=== PATIENT | female | born 2000 | race Caucasian/White ===

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

== ENCOUNTER 2021-12-26 13:28 | Inpatient (IN) ==
[2021-12-26] MEDS ORDERED: ZOFRAN INJ 4 MG VIAL IVP PRN (13:59)
--- NOTE | 2021-12-26 15:38 | DR.H&P ---
H&P History & Physical for Day of: H&P Date: 12/26/21 Chief Complaint Chief Complaint: Right lower quadrant abdominal pain with nausea and vomiting Allergies Allergies Allergy/AdvReac Type Severity Reaction Status Date / Time amitriptyline [From Elavil] AdvReac Verified 12/09/20 16:02 barium sulfate AdvReac Verified 12/09/20 16:02 pantoprazole [From Protonix] AdvReac Verified 12/09/20 16:02 atomic fireball AdvReac Uncoded 12/09/20 16:02 History of Present Illness History of Present Illness: This is a 21-year-old white female who presented to my office today complaining of a 2-day history of right lower quadrant pain with associated nausea and vomiting. She also has some diarrhea yesterday and the day before but none since yesterday. This is different for her because she normally has chronic constipation. She has been taking Zofran along with Phenergan and Compazine without any resolution in her nausea. Her nausea is made worse when thinking about eating something. Her mother reports that she has been drinking some fluid and but is not eating. Here in office exam revealed she had a negative rebound tenderness but positive obturator sign and positive Rovsing sign. I am mildly concerned the patient could have a possible underlying appendicitis but needs further work-up. Given that she is not able to eat and is having trouble keeping things down I think it is pertinent to go ahead and direct admit her and do a CT scanning of her abdomen and pelvis along with some blood work. I have already spoke with general surgeon, Dr. Gutiérrez who will be seeing her in consultation to see if anything is going on with her appendix. We will keep her n.p.o. in the meantime until after an initial work- up can be done. Past Medical History Past Medical History: Migraines and GERD Past Surgical History Surgical History: Cholecystectomy and Ortho Surgery Family History Family Medical History: Diabetes Mellitus and Hypertension Medications Home Medications: amitriptyline [From Elavil] Adverse Reaction (Verified 12/09/20 16:02) barium sulfate Adverse Reaction (Verified 12/09/20 16:02) pantoprazole [From Protonix] Adverse Reaction (Verified 12/09/20 16:02) atomic fireball Adverse Reaction (Uncoded 12/09/20 16:02) Review of Systems Constitutional: Weakness Eyes: No Symptoms Reported ENT: No Symptoms Reported Respiratory: No Symptoms Reported Cardiovascular: No Symptoms Reported Gastrointestinal: Nausea, Vomiting, Abdominal Pain, Diarrhea and Constipation Genitourinary: No Symptoms Reported Musculoskeletal: No Symptoms Reported Skin: No Symptoms Reported Neurological: No Symptoms Reported Physical Exam Vital Signs: Blood Pressure [Left Arm] 142/72 Blood Pressure [Right Arm] 104/56 Blood Pressure [Standing] 133/73 Blood Pressure [Sitting] 116/63 Blood Pressure [Lying] 120/66 Blood Pressure 116/59 Oriented: Normal, Time, Person and Place Eyes: Normal Ear: Normal Nose: Normal Throat: Normal Respiratory: Clear Throughout Cardiovascular: Normal Auscultation: Bowel Sounds: Absent Palpation: Normal Tenderness: RLQ, Moderate and Guarding Skin: Normal Musculoskeletal: Normal Psychiatric: Normal Mood Description: Calm Affect: Anxious Speech Pattern: Clear and Appropriate Assessment/Plan (1) Right lower quadrant pain: Status: Acute Plan: Checking CT abdomen and pelvis. Pain control with morphine and general surgery consult. (2) Anxiety: Status: Acute (3) POTS (postural orthostatic tachycardia syndrome): Status: Acute (4) Nausea and vomiting: Status: Acute Plan: IV Zofran
[2021-12-26] MEDS: MORPHINE SULFATE INJ 2 MG INJ IVP PRN ×2 (15:50→17:06)
[2021-12-26 15:53] LABS: BASOPHILS % (AUTO) 0.3 % (0.2-1.0); EOSINOPHILS # (AUTO) 0.1 x10^3/uL (0.0-0.2); EOSINOPHILS % (AUTO) 2.6 % (0.9-2.9); HEMATOCRIT 35.3 % (36.0-47.0); HEMOGLOBIN 12.2 g/dL (12.0-16.0); LYMPHOCYTES % (AUTO) 43.2 % (21.0-51.0); MEAN CORPUSCULAR HEMOGLOBIN 27.8 pg (27.0-34.0); MEAN CORPUSCULAR HGB CONC 34.5 g/dL (33.0-35.0); MEAN CORPUSCULAR VOLUME 80.7 fL (80.0-100.0); MEAN PLATELET VOLUME 8.3 fL (7.4-11.0); MONOCYTES # (AUTO) 0.4 x10^3/uL (0.3-0.8); MONOCYTES % (AUTO) 8.2 % (0.0-13.0); NEUTROPHILS # (AUTO) 2.1 x10^3/uL (2.2-4.8); NEUTROPHILS % (AUTO) 45.7 % (42.0-75.0); RED BLOOD COUNT 4.37 X10^6/uL (3.5-5.4); WHITE BLOOD COUNT 4.7 X10^3/uL (3.6-10.0)
[2021-12-26 16:02] LABS: SERUM PREGNANCY TEST, QUAL NEGATIVE <10 mIU/mL
[2021-12-26 16:04] LABS: ALANINE AMINOTRANSFERASE 14 Units/L (12-78); ALBUMIN 4.2 g/dL (3.4-5.0); ALKALINE PHOSPHATASE 64 Units/L (46-116); ASPARTATE AMINO TRANSFERASE 13 Units/L (15-37); BLOOD UREA NITROGEN 9 mg/dL (7-18); CALCIUM 8.3 mg/dL (8.5-10.1); CARBON DIOXIDE 28.5 mmol/L (21-32); CHLORIDE 104 mmol/L (98-107); CREATININE 0.72 mg/dL (0.55-1.02); SODIUM 140 mmol/L (136-145); eGFR NON BLACK RACES > 60 (>60)
--- NOTE | 2021-12-26 16:49 | CT ---
HISTORYRUQ PAINSTUDYABDOMEN/PELVIS W/O CONCOMPARISONFebruary 2021TECHNIQUEMultiple axial images of the abdomen and pelvis were obtained from the lung bases to the pubic symphysis without the administration of IV contrast. Dose reduction techniques including Automated Exposure Control (AEC) and adjustment of mA and kV were utilized.FINDINGSThe visualized portions of the lung bases are unremarkable . The liver, spleen, pancreas, kidneys, and adrenal glands are unremarkable in their noncontrast CT appearance. The gallbladder is surgically absent. No significant mesenteric lymphadenopathy or stranding can be observed. No free fluid or free air is seen within the abdomen. No bowel wall thickening or bowel dilatation is present. The colon is unremarkable. Specifically, there is no diverticulosis noted within the sigmoid colon. The appendix appears to be normal in size. There is some tiny adnexal cyst felt to be physiologic for the patient's age. The urinary bladder is grossly unremarkable. The bony structures are grossly intact.IMPRESSIONUnremarkable CT of the abdomen and pelvis.Electronically signed by: LELIA HENRIQUEZ (Dec 26, 2021 16:47:29)
[2021-12-26] MEDS: NS 1,000 ML IV 1,000 ML IV SCH (17:15)
[2021-12-26 17:34] VITALS: BMI 34.7
[2021-12-26] MEDS: DILAUDID INJ IVP PRN ×2 (18:22→21:25)
[2021-12-26] MEDS: FLAGYL IV PREMIX 500 MG BAG 500 MG/100 ML BAG IV SCH ×2 (18:22→21:14)
[2021-12-26] MEDS: PHENERGAN INJ 25 MG IM PRN (18:28)
[2021-12-26 18:59] LABS: BILIRUBIN,URINE NEGATIVE (NEGATIVE); BLOOD/HEMOGLOBIN,URINE 1+ (NEGATIVE); GLUCOSE, URINE NEGATIVE (NEGATIVE); KETONES,URINE 1+ (NEGATIVE); LEUKOCYTE ESTERASE ,URINE NEGATIVE (NEGATIVE); NITRITES,URINE NEGATIVE (NEGATIVE); PROTEIN,URINE 1+ (NEGATIVE); UROBILINOGEN,URINE NORMAL (NORMAL)
[2021-12-26 19:10] LABS: APPEARANCE,URINE SLIGHTLY HAZY (CLEAR); COLOR,URINE DARK YELLOW (YELLOW)
[2021-12-26 19:11] LABS: BACTERIA,URINE TRACE /HPF (NEGATIVE); RBC,URINE 0-2 /HPF (0-3); SQUAMOUS EPITHELIAL CELL,UR MANY /HPF (NEGATIVE)
[2021-12-26] MEDS ORDERED: CIPRO IV 400 MG PREMIX* 400 MG/200 ML IV.SOLN. IV ONE (19:45)
[2021-12-26] MEDS: CIPRO IV 400 MG PREMIX* 400 MG/200 ML IV.SOLN. IV SCH (20:10)
[2021-12-26] MEDS ORDERED: KLONOPIN TAB 1 MG PO PRN (21:16)
[2021-12-26] MEDS: ZOFRAN INJ 4 MG VIAL IVP PRN (21:43)
[2021-12-26] MEDS ORDERED: ZOLOFT ONE (21:52)
[2021-12-26] MEDS: PriLOSEC PO SCH (21:57)
[2021-12-26] MEDS: ZOLOFT PO SCH (21:58)
[2021-12-26] MEDS: NEURONTIN TAB 600 MG PO SCH (21:58)
[2021-12-26] MEDS: PLAQUENIL PO SCH (21:58)
[2021-12-26] MEDS: ZANAFLEX PO SCH (22:00)
[2021-12-26] MEDS ORDERED: INDERAL TAB 10 MG PO SCH (22:00)
[2021-12-27] MEDS: PHENERGAN INJ 25 MG IM PRN ×4 (00:57→20:25)
[2021-12-27] MEDS: DILAUDID INJ IVP PRN ×7 (00:57→22:05)
[2021-12-27] MEDS: NS 1,000 ML IV 1,000 ML IV SCH ×3 (01:19→17:43)
[2021-12-27] MEDS: ZOFRAN INJ 4 MG VIAL IVP PRN ×3 (03:48→17:27)
[2021-12-27] MEDS: FLAGYL IV PREMIX 500 MG BAG 500 MG/100 ML BAG IV SCH ×3 (05:28→23:17)
[2021-12-27] MEDS: REGLAN TAB 10 MG PO SCH ×4 (05:44→21:56)
[2021-12-27] MEDS: NEURONTIN TAB 600 MG PO SCH ×3 (05:44→21:55)
--- NOTE | 2021-12-27 06:12 | RAD ---
HISTORYRight lower quadrant painSTUDYKUBCOMPARISONNoneFIND INGSAbdominal gas pattern is nonspecific and nonobstructive. No abnormal masses or abnormal calcifications are identified. No pneumoperitoneum is present. Regional skeleton is intact.IMPRESSIONUnremarkable flat and upright abdomenElectronically signed by: AMINA LOCKHART (Dec 27, 2021 06:11:13)
[2021-12-27] MEDS: CIPRO IV 400 MG PREMIX* 400 MG/200 ML IV.SOLN. IV SCH ×2 (08:35→21:56)
[2021-12-27] MEDS: PLAQUENIL PO SCH ×2 (08:35→21:56)
[2021-12-27] MEDS: TAB-A-VITE PO SCH (08:35)
[2021-12-27] MEDS: PriLOSEC PO SCH ×2 (08:35→21:55)
[2021-12-27] MEDS ORDERED: NORCO 7.5/325 MG TAB ONE (13:13)
[2021-12-27] MEDS: NORCO 7.5/325 MG TAB PO PRN ×2 (13:15→20:24)
[2021-12-27] MEDS ORDERED: TORADOL 30 MG VIAL ONE (15:04)
--- NOTE | 2021-12-27 15:14 | PCM.PROG ---
Progress Note Progress Note for Day of Date of Exam: 12/27/21 Subjective Subjective: This morning the patient continues to have pain in the right lower quadrant. CT scan did not reveal any fat stranding in the abdomen indicating any inflammation anywhere. Small right ovarian cyst was seen however general surgery thought that this should not cause her any pain. She does have a history of Crohn's disease in the past. She is not being treated for it at this time. I will consult gastroenterology, Dr. Fajardo for further evaluation and treatment of this problem. In the meantime she is receiving p.o. hydrocodone and IV Dilaudid for breakthrough pain. Her labs are unremarkable and she has had no further episodes of diarrhea. Her mother reports that she has vomited a few more times last night after coming in the hospital yesterday. Past Medical Family Social History Allergies: Allergies amitriptyline [From Elavil] Adverse Reaction (Verified 12/09/20 16:02) barium sulfate Adverse Reaction (Verified 12/09/20 16:02) pantoprazole [From Protonix] Adverse Reaction (Verified 12/09/20 16:02) atomic fireball Adverse Reaction (Uncoded 12/09/20 16:02) Review of Systems ROS: No change since H&P Vital Signs and I&O's Vital Signs: Temperature 97.7 F Pulse Rate [Bilateral Radial] 75 Pulse Rate 67 Respiratory Rate 18 Blood Pressure [Left Arm] 128/83 Blood Pressure [Right Arm] 104/56 Blood Pressure [Standing] 133/73 Blood Pressure [Sitting] 116/63 Blood Pressure [Lying] 120/66 Blood Pressure 102/59 O2 Sat by Pulse Oximetry 97 Intake and Output: Intake & Output 12/25/21 12/26/21 12/27/21 12/28/21 11:59 11:59 11:59 11:59 Intake Total 1625 / 1625 Balance 1625 / 1625 Physical Exam Oriented: Normal, Time, Person and Place Eyes: Normal Ear: Normal Nose: Normal Throat: Normal Respiratory: Normal Cardiovascular: Normal Auscultation: Bowel Sounds: Absent Tenderness: RLQ, Moderate and Guarding Skin: Normal Musculoskeletal: Normal Psychiatric: Normal Mood Description: Calm Affect: Anxious Speech Pattern: Clear and Appropriate Laboratory and Diagnostics Result Diagrams: 12/26/21 15:40 12/26/21 15:40 Labs: Laboratory WBC 4.7 X10^3/uL (3.6-10.0) 12/26/21 15:40 RBC 4.37 X10^6/uL (3.5-5.4) 12/26/21 15:40 Hgb 12.2 g/dL (12.0-16.0) 12/26/21 15:40 Hct 35.3 % (36.0-47.0) L 12/26/21 15:40 MCV 80.7 fL (80.0-100.0) 12/26/21 15:40 MCH 27.8 pg (27.0-34.0) 12/26/21 15:40 MCHC 34.5 g/dL (33.0-35.0) 12/26/21 15:40 RDW 13.0 % (11.6-16.5) 12/26/21 15:40 Plt Count 243 X10^3/uL (150.0-450.0) 12/26/21 15:40 MPV 8.3 fL (7.4-11.0) 12/26/21 15:40 Neut % (Auto) 45.7 % (42.0-75.0) 12/26/21 15:40 Lymph % (Auto) 43.2 % (21.0-51.0) 12/26/21 15:40 [place] % (Auto) 8.2 % (0.0-13.0) 12/26/21 15:40 Eos % (Auto) 2.6 % (0.9-2.9) 12/26/21 15:40 Baso % (Auto) 0.3 % (0.2-1.0) 12/26/21 15:40 Neut # (Auto) 2.1 x10^3/uL (2.2-4.8) L 12/26/21 15:40 Lymph # (Auto) 2.0 X10^3/uL (1.3-2.9) 12/26/21 15:40 [place] # (Auto) 0.4 x10^3/uL (0.3-0.8) 12/26/21 15:40 Eos # (Auto) 0.1 x10^3/uL (0.0-0.2) 12/26/21 15:40 Baso # (Auto) 0.0 X10^3/uL (0.0-0.1) 12/26/21 15:40 Absolute Nucleated RBC 0.1 /100WBC 12/26/21 15:40 Sodium 140 mmol/L (136-145) 12/26/21 15:40 Corrected Sodium TNP 12/26/21 15:40 Potassium 3.8 mmol/L (3.5-5.1) 12/26/21 15:40 Chloride 104 mmol/L (98-107) 12/26/21 15:40 Carbon Dioxide 28.5 mmol/L (21-32) 12/26/21 15:40 BUN 9 mg/dL (7-18) 12/26/21 15:40 Creatinine 0.72 mg/dL (0.55-1.02) 12/26/21 15:40 Est GFR (MDRD) Af Amer > 60 (>60) 12/26/21 15:40 Est GFR (MDRD) Non-Af > 60 (>60) 12/26/21 15:40 Glucose 94 mg/dL (65-99) 12/26/21 15:40 Calcium 8.3 mg/dL (8.5-10.1) L 12/26/21 15:40 Corrected Calcium TNP 12/26/21 15:40 Total Bilirubin 0.60 mg/dL (0.2-1.0) 12/26/21 15:40 AST 13 Units/L (15-37) L 12/26/21 15:40 ALT 14 Units/L (12-78) 12/26/21 15:40 Alkaline Phosphatase 64 Units/L (46-116) 12/26/21 15:40 Total Protein 7.0 g/dL (6.4-8.2) 12/26/21 15:40 Albumin 4.2 g/dL (3.4-5.0) 12/26/21 15:40 Globulin 2.8 g/dL (2.5-4.5) 12/26/21 15:40 Albumin/Globulin Ratio 1.5 Ratio (1.1-2.1) 12/26/21 15:40 HCG, Qual Negative <10 mIU/mL 12/26/21 15:40 Specimen Type Random urine 12/26/21 18:20 Urine Color Dark yellow (YELLOW) 12/26/21 18:20 Urine Appearance Slightly hazy (CLEAR) 12/26/21 18:20 Urine pH 6.0 (5.0 - 8.0) 12/26/21 18:20 Ur Specific [place] 1.030 (1.000-1.030) 12/26/21 18:20 Urine Protein 1+ (NEGATIVE) 12/26/21 18:20 Urine Glucose (UA) Negative (NEGATIVE) 12/26/21 18:20 Urine Ketones 1+ (NEGATIVE) 12/26/21 18:20 Urine Blood 1+ (NEGATIVE) 12/26/21 18:20 Urine Nitrite Negative (NEGATIVE) 12/26/21 18:20 Urine Bilirubin Negative (NEGATIVE) 12/26/21 18:20 Urine Urobilinogen Normal (NORMAL) 12/26/21 18:20 Ur Leukocyte Esterase Negative (NEGATIVE) 12/26/21 18:20 Urine RBC 0-2 /HPF (0-3) 12/26/21 18:20 Urine WBC None seen /HPF (0-5) 12/26/21 18:20 Ur Squamous Epith Cells Many /HPF (NEGATIVE) 12/26/21 18:20 Urine Bacteria Trace /HPF (NEGATIVE) 12/26/21 18:20 Urine Mucus Few /HPF (NEGATIVE) 12/26/21 18:20 Ur Culture Indicated? No/not indicated 12/26/21 18:20 SARS-CoV-2 (PCR) Negative (NEGATIVE) 12/26/21 15:50 Radiology Reviewed: Yes Plan (1) Right lower quadrant pain: Status: Acute Narrative Support Text: CT did not show any underlying appendicitis and no mesenteric adenitis. Currently unaware what might be causing her her pain at this time Plan: I will consult gastroenterology, Dr. Fajardo for any further recommendations and treatment options. Follow-up pelvic ultrasound when results are available. (2) Anxiety: Status: Acute (3) POTS (postural orthostatic tachycardia syndrome): Status: Acute (4) Nausea and vomiting: Status: Acute Plan: IV Zofran (5) History of Crohn's disease: Status: Acute Plan: I will consult gastroenterology, Dr. Fajardo for recommendations to treatment of her history of Crohn's disease.
[2021-12-27] MEDS: TORADOL 30 MG VIAL IVP PRN (15:30)
--- NOTE | 2021-12-27 15:40 | DR.PROGNOT ---
Hospital Progress Notes - Progress Note for Day of: Progress Note Date: 12/27/21 - Chief Complaint Chief Complaint: still having RLQ pain with nausea .. moderate hypotention '. KUB was read as normal .. CBC and CMP were normal . - Past Medical Family Social History Past Med/Fam/Surg Hx: No changes since H&P Allergies: Allergies amitriptyline [From Elavil] Adverse Reaction (Verified 12/09/20 16:02) barium sulfate Adverse Reaction (Verified 12/09/20 16:02) pantoprazole [From Protonix] Adverse Reaction (Verified 12/09/20 16:02) atomic fireball Adverse Reaction (Uncoded 12/09/20 16:02) - Vital Signs Vital Signs: Temperature 97.7 F Pulse Rate [Bilateral Radial] 75 Pulse Rate 67 Respiratory Rate 18 Blood Pressure [Left Arm] 128/83 Blood Pressure [Right Arm] 104/56 Blood Pressure [Standing] 133/73 Blood Pressure [Sitting] 116/63 Blood Pressure [Lying] 120/66 Blood Pressure 102/59 O2 Sat by Pulse Oximetry 97 - Physical Exam Oriented: Normal, Time, Person, Place Eyes: Normal, Other (legally blind ) Ear: Normal Nose: Normal Throat: Normal Cardiovascular: Normal GI:Auscultation: Decreased (soft abdomen with moderate RLQ tenderness . no rebound ..BS hypoactive ..) GI:Palpation: Normal GI: Tenderness: RLQ, Guarding, Moderate Skin: Normal Musculoskeletal: Normal Psychiatric: Normal Mood Description: Calm Affect: Anxious Speech Pattern: Clear, Appropriate - Laboratory and Diagnostics Result Diagrams: 12/26/21 15:40 12/26/21 15:40 Labs: Laboratory WBC 4.7 X10^3/uL (3.6-10.0) 12/26/21 15:40 RBC 4.37 X10^6/uL (3.5-5.4) 12/26/21 15:40 Hgb 12.2 g/dL (12.0-16.0) 12/26/21 15:40 Hct 35.3 % (36.0-47.0) L 12/26/21 15:40 MCV 80.7 fL (80.0-100.0) 12/26/21 15:40 MCH 27.8 pg (27.0-34.0) 12/26/21 15:40 MCHC 34.5 g/dL (33.0-35.0) 12/26/21 15:40 RDW 13.0 % (11.6-16.5) 12/26/21 15:40 Plt Count 243 X10^3/uL (150.0-450.0) 12/26/21 15:40 MPV 8.3 fL (7.4-11.0) 12/26/21 15:40 Neut % (Auto) 45.7 % (42.0-75.0) 12/26/21 15:40 Lymph % (Auto) 43.2 % (21.0-51.0) 12/26/21 15:40 [place] % (Auto) 8.2 % (0.0-13.0) 12/26/21 15:40 Eos % (Auto) 2.6 % (0.9-2.9) 12/26/21 15:40 Baso % (Auto) 0.3 % (0.2-1.0) 12/26/21 15:40 Neut # (Auto) 2.1 x10^3/uL (2.2-4.8) L 12/26/21 15:40 Lymph # (Auto) 2.0 X10^3/uL (1.3-2.9) 12/26/21 15:40 [place] # (Auto) 0.4 x10^3/uL (0.3-0.8) 12/26/21 15:40 Eos # (Auto) 0.1 x10^3/uL (0.0-0.2) 12/26/21 15:40 Baso # (Auto) 0.0 X10^3/uL (0.0-0.1) 12/26/21 15:40 Absolute Nucleated RBC 0.1 /100WBC 12/26/21 15:40 Sodium 140 mmol/L (136-145) 12/26/21 15:40 Corrected Sodium TNP 12/26/21 15:40 Potassium 3.8 mmol/L (3.5-5.1) 12/26/21 15:40 Chloride 104 mmol/L (98-107) 12/26/21 15:40 Carbon Dioxide 28.5 mmol/L (21-32) 12/26/21 15:40 BUN 9 mg/dL (7-18) 12/26/21 15:40 Creatinine 0.72 mg/dL (0.55-1.02) 12/26/21 15:40 Est GFR (MDRD) Af Amer > 60 (>60) 12/26/21 15:40 Est GFR (MDRD) Non-Af > 60 (>60) 12/26/21 15:40 Glucose 94 mg/dL (65-99) 12/26/21 15:40 Calcium 8.3 mg/dL (8.5-10.1) L 12/26/21 15:40 Corrected Calcium TNP 12/26/21 15:40 Total Bilirubin 0.60 mg/dL (0.2-1.0) 12/26/21 15:40 AST 13 Units/L (15-37) L 12/26/21 15:40 ALT 14 Units/L (12-78) 12/26/21 15:40 Alkaline Phosphatase 64 Units/L (46-116) 12/26/21 15:40 Total Protein 7.0 g/dL (6.4-8.2) 12/26/21 15:40 Albumin 4.2 g/dL (3.4-5.0) 12/26/21 15:40 Globulin 2.8 g/dL (2.5-4.5) 12/26/21 15:40 Albumin/Globulin Ratio 1.5 Ratio (1.1-2.1) 12/26/21 15:40 HCG, Qual Negative <10 mIU/mL 12/26/21 15:40 Specimen Type Random urine 12/26/21 18:20 Urine Color Dark yellow (YELLOW) 12/26/21 18:20 Urine Appearance Slightly hazy (CLEAR) 12/26/21 18:20 Urine pH 6.0 (5.0 - 8.0) 12/26/21 18:20 Ur Specific [place] 1.030 (1.000-1.030) 12/26/21 18:20 Urine Protein 1+ (NEGATIVE) 12/26/21 18:20 Urine Glucose (UA) Negative (NEGATIVE) 12/26/21 18:20 Urine Ketones 1+ (NEGATIVE) 12/26/21 18:20 Urine Blood 1+ (NEGATIVE) 12/26/21 18:20 Urine Nitrite Negative (NEGATIVE) 12/26/21 18:20 Urine Bilirubin Negative (NEGATIVE) 12/26/21 18:20 Urine Urobilinogen Normal (NORMAL) 12/26/21 18:20 Ur Leukocyte Esterase Negative (NEGATIVE) 12/26/21 18:20 Urine RBC 0-2 /HPF (0-3) 12/26/21 18:20 Urine WBC None seen /HPF (0-5) 12/26/21 18:20 Ur Squamous Epith Cells Many /HPF (NEGATIVE) 12/26/21 18:20 Urine Bacteria Trace /HPF (NEGATIVE) 12/26/21 18:20 Urine Mucus Few /HPF (NEGATIVE) 12/26/21 18:20 Ur Culture Indicated? No/not indicated 12/26/21 18:20 SARS-CoV-2 (PCR) Negative (NEGATIVE) 12/26/21 15:50 - Assessment and Plan 1: abdominal pain ,. possible IBD . small ovarian cyst . for pelvic US . same IV ABT and pain control . may need colonoscopy if still having pain .
[2021-12-27] MEDS ORDERED: ZOLOFT ONE (20:54)
[2021-12-27] MEDS: ZANAFLEX PO SCH (21:55)
[2021-12-27] MEDS: PATIENT'S HOME MEDICATION PO SCH (21:56)
[2021-12-27] MEDS: ZOLOFT PO SCH (21:56)
[2021-12-27] MEDS ORDERED: ZANAFLEX PO SCH (22:00)
[2021-12-28] MEDS: NS 1,000 ML IV 1,000 ML IV SCH ×3 (01:11→17:10)
[2021-12-28] MEDS: DILAUDID INJ IVP PRN ×4 (04:19→18:05)
[2021-12-28] MEDS: ZOFRAN INJ 4 MG VIAL IVP PRN ×3 (04:20→15:52)
[2021-12-28] MEDS: FLAGYL IV PREMIX 500 MG BAG 500 MG/100 ML BAG IV SCH (06:05)
[2021-12-28] MEDS: NEURONTIN TAB 600 MG PO SCH ×3 (06:05→21:01)
[2021-12-28] MEDS: REGLAN TAB 10 MG PO SCH (06:06)
--- NOTE | 2021-12-28 06:25 | US ---
HISTORYRight lower quadrant painSTUDYPelvic sonogramTechnique: Multiple grayscale sonographic images were obtained transabdominally.COMPARISONCT abdomen pelvis 12/26/2021FINDINGSThe uterus measured 7.7 x 2.8 x 4.3 cm. Endometrial thickness was normal at 3.4 mm. Right ovary measures 3.1 x 1.9 x 2.3 cm. There is a 3.5 cm right adnexal cyst present, simple. There are some follicles present. There is normal blood flow to the right ovary. Left ovary measured 2.8 x 1.5 x 2.3 cm and appear normal and demonstrated normal blood flow. No free fluid is noted in the cul de sac.IMPRESSION3.5 cm right adnexal cyst which could be ovarian or paraovarian in origin.Electronically signed by: AMINA LOCKHART (Dec 28, 2021 06:23:09)
[2021-12-28] MEDS: PHENERGAN INJ 25 MG IM PRN ×3 (06:27→18:05)
[2021-12-28] MEDS: TORADOL 30 MG VIAL IVP PRN ×2 (06:27→15:52)
[2021-12-28] MEDS: CIPRO IV 400 MG PREMIX* 400 MG/200 ML IV.SOLN. IV SCH ×2 (08:09→20:59)
[2021-12-28] MEDS: PLAQUENIL PO SCH ×2 (08:09→21:00)
[2021-12-28] MEDS: PriLOSEC PO SCH ×2 (08:11→20:58)
[2021-12-28] MEDS: TAB-A-VITE PO SCH (08:11)
[2021-12-28] MEDS: PEPCID 20 MG VIAL IVP SCH ×2 (13:55→20:59)
[2021-12-28] MEDS: REGLAN INJ 10 MG VIAL IVP SCH ×3 (13:55→20:59)
[2021-12-28] MEDS: NORCO 7.5/325 MG TAB PO PRN (13:55)
[2021-12-28 14:15] LABS: BILIRUBIN,URINE NEGATIVE (NEGATIVE); GLUCOSE, URINE NEGATIVE (NEGATIVE); KETONES,URINE 1+ (NEGATIVE); UROBILINOGEN,URINE NORMAL (NORMAL)
[2021-12-28 14:26] LABS: APPEARANCE,URINE SLIGHTLY HAZY (CLEAR); BACTERIA,URINE TRACE /HPF (NEGATIVE); COLOR,URINE YELLOW (YELLOW); RBC,URINE 0-2 /HPF (0-3); SQUAMOUS EPITHELIAL CELL,UR RARE /HPF (NEGATIVE)
--- NOTE | 2021-12-28 15:14 | PCM.PROG ---
Progress Note Progress Note for Day of Date of Exam: 12/28/21 Subjective Subjective: This morning the patient continues to have pain in the right lower quadrant. The mother reports that she is only having dribbling the urine through the night. I will go ahead and have them place a Gauthier catheter today to see if this will give her some relief and I will follow-up with gastr oenterology's consult to see what they think regarding the patient's symptoms. Past Medical Family Social History Past Med/Fam/Surg Hx: No changes since H&P Allergies: Allergies amitriptyline [From Elavil] Adverse Reaction (Verified 12/09/20 16:02) barium sulfate Adverse Reaction (Verified 12/09/20 16:02) pantoprazole [From Protonix] Adverse Reaction (Verified 12/09/20 16:02) atomic fireball Adverse Reaction (Uncoded 12/09/20 16:02) Review of Systems ROS: No change since H&P Vital Signs and I&O's Vital Signs: Temperature 97.5 F Pulse Rate [Bilateral Radial] 75 Pulse Rate 97 Respiratory Rate 20 Blood Pressure [Left Arm] 128/83 Blood Pressure [Right Arm] 104/56 Blood Pressure [Standing] 133/73 Blood Pressure [Sitting] 116/63 Blood Pressure [Lying] 120/66 Blood Pressure 107/66 O2 Sat by Pulse Oximetry 100 Intake and Output: Intake & Output 12/26/21 12/27/21 12/28/21 12/29/21 11:59 11:59 11:59 11:59 Intake Total 1625 / 1625 3344 / 3344 Balance 1625 / 1625 3344 / 3344 Physical Exam Oriented: Normal, Time, Person and Place Eyes: Normal and Other (legally blind ) Ear: Normal Nose: Normal Throat: Normal Respiratory: Normal Cardiovascular: Normal Auscultation: Bowel Sounds: Decreased (soft abdomen with moderate RLQ tenderness . no rebound ..BS hypoactive ..) Tenderness: RLQ, Moderate and Guarding Skin: Normal Musculoskeletal: Normal Psychiatric: Normal Mood Description: Calm Affect: Anxious Speech Pattern: Clear and Appropriate Laboratory and Diagnostics Result Diagrams: 12/26/21 15:40 12/26/21 15:40 Labs: Laboratory WBC 4.7 X10^3/uL (3.6-10.0) 12/26/21 15:40 RBC 4.37 X10^6/uL (3.5-5.4) 12/26/21 15:40 Hgb 12.2 g/dL (12.0-16.0) 12/26/21 15:40 Hct 35.3 % (36.0-47.0) L 12/26/21 15:40 MCV 80.7 fL (80.0-100.0) 12/26/21 15:40 MCH 27.8 pg (27.0-34.0) 12/26/21 15:40 MCHC 34.5 g/dL (33.0-35.0) 12/26/21 15:40 RDW 13.0 % (11.6-16.5) 12/26/21 15:40 Plt Count 243 X10^3/uL (150.0-450.0) 12/26/21 15:40 MPV 8.3 fL (7.4-11.0) 12/26/21 15:40 Neut % (Auto) 45.7 % (42.0-75.0) 12/26/21 15:40 Lymph % (Auto) 43.2 % (21.0-51.0) 12/26/21 15:40 [place] % (Auto) 8.2 % (0.0-13.0) 12/26/21 15:40 Eos % (Auto) 2.6 % (0.9-2.9) 12/26/21 15:40 Baso % (Auto) 0.3 % (0.2-1.0) 12/26/21 15:40 Neut # (Auto) 2.1 x10^3/uL (2.2-4.8) L 12/26/21 15:40 Lymph # (Auto) 2.0 X10^3/uL (1.3-2.9) 12/26/21 15:40 [place] # (Auto) 0.4 x10^3/uL (0.3-0.8) 12/26/21 15:40 Eos # (Auto) 0.1 x10^3/uL (0.0-0.2) 12/26/21 15:40 Baso # (Auto) 0.0 X10^3/uL (0.0-0.1) 12/26/21 15:40 Absolute Nucleated RBC 0.1 /100WBC 12/26/21 15:40 Sodium 140 mmol/L (136-145) 12/26/21 15:40 Corrected Sodium TNP 12/26/21 15:40 Potassium 3.8 mmol/L (3.5-5.1) 12/26/21 15:40 Chloride 104 mmol/L (98-107) 12/26/21 15:40 Carbon Dioxide 28.5 mmol/L (21-32) 12/26/21 15:40 BUN 9 mg/dL (7-18) 12/26/21 15:40 Creatinine 0.72 mg/dL (0.55-1.02) 12/26/21 15:40 Est GFR (MDRD) Af Amer > 60 (>60) 12/26/21 15:40 Est GFR (MDRD) Non-Af > 60 (>60) 12/26/21 15:40 Glucose 94 mg/dL (65-99) 12/26/21 15:40 Calcium 8.3 mg/dL (8.5-10.1) L 12/26/21 15:40 Corrected Calcium TNP 12/26/21 15:40 Total Bilirubin 0.60 mg/dL (0.2-1.0) 12/26/21 15:40 AST 13 Units/L (15-37) L 12/26/21 15:40 ALT 14 Units/L (12-78) 12/26/21 15:40 Alkaline Phosphatase 64 Units/L (46-116) 12/26/21 15:40 Total Protein 7.0 g/dL (6.4-8.2) 12/26/21 15:40 Albumin 4.2 g/dL (3.4-5.0) 12/26/21 15:40 Globulin 2.8 g/dL (2.5-4.5) 12/26/21 15:40 Albumin/Globulin Ratio 1.5 Ratio (1.1-2.1) 12/26/21 15:40 HCG, Qual Negative <10 mIU/mL 12/26/21 15:40 Specimen Type Catherized urine 12/28/21 08:50 Urine Color Yellow (YELLOW) 12/28/21 08:50 Urine Appearance Slightly hazy (CLEAR) 12/28/21 08:50 Urine pH 5.0 (5.0 - 8.0) 12/28/21 08:50 Ur Specific [place] 1.025 (1.000-1.030) 12/28/21 08:50 Urine Protein 2+ (NEGATIVE) 12/28/21 08:50 Urine Glucose (UA) Negative (NEGATIVE) 12/28/21 08:50 Urine Ketones 1+ (NEGATIVE) 12/28/21 08:50 Urine Blood 1+ (NEGATIVE) 12/28/21 08:50 Urine Nitrite Positive (NEGATIVE) 12/28/21 08:50 Urine Bilirubin Negative (NEGATIVE) 12/28/21 08:50 Urine Urobilinogen Normal (NORMAL) 12/28/21 08:50 Ur Leukocyte Esterase 1+ (NEGATIVE) 12/28/21 08:50 Urine RBC 0-2 /HPF (0-3) 12/28/21 08:50 Urine WBC 0-2 /HPF (0-5) 12/28/21 08:50 Ur Squamous Epith Cells Rare /HPF (NEGATIVE) 12/28/21 08:50 Urine Bacteria Trace /HPF (NEGATIVE) 12/28/21 08:50 Urine Mucus Rare /HPF (NEGATIVE) 12/28/21 08:50 Ur Culture Indicated? Yes/culture set up 12/28/21 08:50 SARS-CoV-2 (PCR) Negative (NEGATIVE) 12/26/21 15:50 Plan (1) Right lower quadrant pain: Status: Acute Plan: Follow-up gastroenterology's consultation (2) Anxiety: Status: Acute (3) POTS (postural orthostatic tachycardia syndrome): Status: Acute (4) Nausea and vomiting: Status: Acute Plan: IV Zofran (5) History of Crohn's disease: Status: Acute Plan: I will consult gastroenterology, Dr. Fajardo for recommendations to treatment of her history of Crohn's disease. (6) Urinary retention: Status: Acute Plan: Place Gauthier catheter today.
--- NOTE | 2021-12-28 15:17 | DR.PROGNOT ---
Hospital Progress Notes - Progress Note for Day of: Progress Note Date: 12/28/21 - Chief Complaint Chief Complaint: still having RLQ pain with nausea .. moderate hypotention '. KUB was read as normal .. CBC and CMP were normal . - Past Medical Family Social History Past Med/Fam/Surg Hx: No changes since H&P Allergies: Allergies amitriptyline [From Elavil] Adverse Reaction (Verified 12/09/20 16:02) barium sulfate Adverse Reaction (Verified 12/09/20 16:02) pantoprazole [From Protonix] Adverse Reaction (Verified 12/09/20 16:02) atomic fireball Adverse Reaction (Uncoded 12/09/20 16:02) - Review Of Systems ROS: No change since H&P - Vital Signs Vital Signs: Temperature 97.5 F Pulse Rate [Bilateral Radial] 75 Pulse Rate 97 Respiratory Rate 20 Blood Pressure [Left Arm] 128/83 Blood Pressure [Right Arm] 104/56 Blood Pressure [Standing] 133/73 Blood Pressure [Sitting] 116/63 Blood Pressure [Lying] 120/66 Blood Pressure 107/66 O2 Sat by Pulse Oximetry 100 - Physical Exam Oriented: Normal, Time, Person, Place Eyes: Normal, Other (legally blind ) Ear: Normal Nose: Normal Throat: Normal Respiratory: Normal Cardiovascular: Normal GI:Auscultation: Decreased (soft abdomen with moderate RLQ tenderness . no rebound ..BS hypoactive ..) GI:Palpation: Normal GI: Tenderness: RLQ (soft, flat abdomen with moderate o severe RLQ tenderness .. B+), Moderate, Guarding Skin: Normal Musculoskeletal: Normal Psychiatric: Normal Mood Description: Calm Affect: Anxious Speech Pattern: Clear, Appropriate - Laboratory and Diagnostics Result Diagrams: 12/26/21 15:40 12/26/21 15:40 Labs: Laboratory WBC 4.7 X10^3/uL (3.6-10.0) 12/26/21 15:40 RBC 4.37 X10^6/uL (3.5-5.4) 12/26/21 15:40 Hgb 12.2 g/dL (12.0-16.0) 12/26/21 15:40 Hct 35.3 % (36.0-47.0) L 12/26/21 15:40 MCV 80.7 fL (80.0-100.0) 12/26/21 15:40 MCH 27.8 pg (27.0-34.0) 12/26/21 15:40 MCHC 34.5 g/dL (33.0-35.0) 12/26/21 15:40 RDW 13.0 % (11.6-16.5) 12/26/21 15:40 Plt Count 243 X10^3/uL (150.0-450.0) 12/26/21 15:40 MPV 8.3 fL (7.4-11.0) 12/26/21 15:40 Neut % (Auto) 45.7 % (42.0-75.0) 12/26/21 15:40 Lymph % (Auto) 43.2 % (21.0-51.0) 12/26/21 15:40 [place] % (Auto) 8.2 % (0.0-13.0) 12/26/21 15:40 Eos % (Auto) 2.6 % (0.9-2.9) 12/26/21 15:40 Baso % (Auto) 0.3 % (0.2-1.0) 12/26/21 15:40 Neut # (Auto) 2.1 x10^3/uL (2.2-4.8) L 12/26/21 15:40 Lymph # (Auto) 2.0 X10^3/uL (1.3-2.9) 12/26/21 15:40 [place] # (Auto) 0.4 x10^3/uL (0.3-0.8) 12/26/21 15:40 Eos # (Auto) 0.1 x10^3/uL (0.0-0.2) 12/26/21 15:40 Baso # (Auto) 0.0 X10^3/uL (0.0-0.1) 12/26/21 15:40 Absolute Nucleated RBC 0.1 /100WBC 12/26/21 15:40 Sodium 140 mmol/L (136-145) 12/26/21 15:40 Corrected Sodium TNP 12/26/21 15:40 Potassium 3.8 mmol/L (3.5-5.1) 12/26/21 15:40 Chloride 104 mmol/L (98-107) 12/26/21 15:40 Carbon Dioxide 28.5 mmol/L (21-32) 12/26/21 15:40 BUN 9 mg/dL (7-18) 12/26/21 15:40 Creatinine 0.72 mg/dL (0.55-1.02) 12/26/21 15:40 Est GFR (MDRD) Af Amer > 60 (>60) 12/26/21 15:40 Est GFR (MDRD) Non-Af > 60 (>60) 12/26/21 15:40 Glucose 94 mg/dL (65-99) 12/26/21 15:40 Calcium 8.3 mg/dL (8.5-10.1) L 12/26/21 15:40 Corrected Calcium TNP 12/26/21 15:40 Total Bilirubin 0.60 mg/dL (0.2-1.0) 12/26/21 15:40 AST 13 Units/L (15-37) L 12/26/21 15:40 ALT 14 Units/L (12-78) 12/26/21 15:40 Alkaline Phosphatase 64 Units/L (46-116) 12/26/21 15:40 Total Protein 7.0 g/dL (6.4-8.2) 12/26/21 15:40 Albumin 4.2 g/dL (3.4-5.0) 12/26/21 15:40 Globulin 2.8 g/dL (2.5-4.5) 12/26/21 15:40 Albumin/Globulin Ratio 1.5 Ratio (1.1-2.1) 12/26/21 15:40 HCG, Qual Negative <10 mIU/mL 12/26/21 15:40 Specimen Type Catherized urine 12/28/21 08:50 Urine Color Yellow (YELLOW) 12/28/21 08:50 Urine Appearance Slightly hazy (CLEAR) 12/28/21 08:50 Urine pH 5.0 (5.0 - 8.0) 12/28/21 08:50 Ur Specific [place] 1.025 (1.000-1.030) 12/28/21 08:50 Urine Protein 2+ (NEGATIVE) 12/28/21 08:50 Urine Glucose (UA) Negative (NEGATIVE) 12/28/21 08:50 Urine Ketones 1+ (NEGATIVE) 12/28/21 08:50 Urine Blood 1+ (NEGATIVE) 12/28/21 08:50 Urine Nitrite Positive (NEGATIVE) 12/28/21 08:50 Urine Bilirubin Negative (NEGATIVE) 12/28/21 08:50 Urine Urobilinogen Normal (NORMAL) 12/28/21 08:50 Ur Leukocyte Esterase 1+ (NEGATIVE) 12/28/21 08:50 Urine RBC 0-2 /HPF (0-3) 12/28/21 08:50 Urine WBC 0-2 /HPF (0-5) 12/28/21 08:50 Ur Squamous Epith Cells Rare /HPF (NEGATIVE) 12/28/21 08:50 Urine Bacteria Trace /HPF (NEGATIVE) 12/28/21 08:50 Urine Mucus Rare /HPF (NEGATIVE) 12/28/21 08:50 Ur Culture Indicated? Yes/culture set up 12/28/21 08:50 SARS-CoV-2 (PCR) Negative (NEGATIVE) 12/26/21 15:50 - Assessment and Plan 1: abdominal pain ,. possible IBD . RT ovarian cyst 3.5 cm. same IV ABT and pain control . may need colonoscopy if still having pain . if Pt still vey symptomatic will do diagnostic laparoscopy .
[2021-12-28 16:06] LABS: PROTEIN,URINE 1+ (NEGATIVE)
[2021-12-28 16:07] LABS: BLOOD/HEMOGLOBIN,URINE NEGATIVE (NEGATIVE); LEUKOCYTE ESTERASE ,URINE NEGATIVE (NEGATIVE); NITRITES,URINE NEGATIVE (NEGATIVE)
--- NOTE | 2021-12-28 18:04 | RAD ---
HISTORYCONSTIPATION R/O ILEUS HX ASTHMA. SX GB, ORTHO.STUDYACUTE ABDOMEN [id number]/06/2022FINDINGSUnderi nflation. Left base retrocardiac opacity with air bronchograms. Right lung grossly clear. No visible pneumothorax or pneumoperitoneum. Nonobstructive nonspecific bowel gas pattern with small bowel and large bowel gas seen. No suggestion of organomegaly. RUQ clips. No acute osseous finding. Possible bladder probe.IMPRESSION1. [Left retrocardiac opacity concerning for pneumonia. Radiographic follow-up recommended.2. [Nonobstructive nonspecific bowel gas pattern.]Electronically signed by: Jerome Amaya (Dec 28, 2021 18:02:58)
[2021-12-28] MEDS ORDERED: CITROMA PO ONE (19:56)
[2021-12-28] MEDS ORDERED: DULCOLAX TAB EC 5 MG PO ONE (19:57)
[2021-12-28] MEDS ORDERED: ZOLOFT ONE (20:40)
[2021-12-28] MEDS: ZANAFLEX PO SCH (20:57)
[2021-12-28] MEDS: ZOLOFT PO SCH (20:58)
[2021-12-28] MEDS ORDERED: DULCOLAX SUPPOSITORY 10 MG RECTAL SCH (21:00)
[2021-12-28] MEDS: PATIENT'S HOME MEDICATION PO SCH (21:01)
[2021-12-28] MEDS: GOLYTELY or GAVILYTE or Equivalent PO SCH (21:43)
[2021-12-29] MEDS: ZOFRAN INJ 4 MG VIAL IVP PRN ×4 (00:23→21:27)
[2021-12-29] MEDS: TORADOL 30 MG VIAL IVP PRN ×2 (00:24→11:29)
[2021-12-29] MEDS: NS 1,000 ML IV 1,000 ML IV SCH ×3 (02:07→21:26)
[2021-12-29] MEDS: NORCO 7.5/325 MG TAB PO PRN (04:59)
[2021-12-29] MEDS: NEURONTIN TAB 600 MG PO SCH ×3 (05:08→21:40)
[2021-12-29 05:26] LABS: ERYTHROCYTE SEDIMENTATION RATE 2 MM/HOUR (0-20)
[2021-12-29 05:31] LABS: BASOPHILS % (AUTO) 0.2 % (0.2-1.0); EOSINOPHILS # (AUTO) 0.1 x10^3/uL (0.0-0.2); EOSINOPHILS % (AUTO) 1.3 % (0.9-2.9); HEMATOCRIT 29.4 % (36.0-47.0); HEMOGLOBIN 10.4 g/dL (12.0-16.0); LYMPHOCYTES # (AUTO) 1.2 X10^3/uL (1.3-2.9); LYMPHOCYTES % (AUTO) 18.5 % (21.0-51.0); MEAN CORPUSCULAR HEMOGLOBIN 28.1 pg (27.0-34.0); MEAN CORPUSCULAR HGB CONC 35.4 g/dL (33.0-35.0); MEAN CORPUSCULAR VOLUME 79.3 fL (80.0-100.0); MEAN PLATELET VOLUME 8.6 fL (7.4-11.0); MONOCYTES # (AUTO) 0.6 x10^3/uL (0.3-0.8); MONOCYTES % (AUTO) 8.4 % (0.0-13.0); NEUTROPHILS # (AUTO) 4.8 x10^3/uL (2.2-4.8); NEUTROPHILS % (AUTO) 71.6 % (42.0-75.0); RED CELL DISTRIBUTION WIDTH 12.6 % (11.6-16.5); WHITE BLOOD COUNT 6.7 X10^3/uL (3.6-10.0)
[2021-12-29 05:44] LABS: ALANINE AMINOTRANSFERASE 19 Units/L (12-78); ALKALINE PHOSPHATASE 47 Units/L (46-116); ASPARTATE AMINO TRANSFERASE 27 Units/L (15-37); BLOOD UREA NITROGEN 4 mg/dL (7-18); CALCIUM 7.9 mg/dL (8.5-10.1); CARBON DIOXIDE 25.5 mmol/L (21-32); CHLORIDE 105 mmol/L (98-107); COR CA(FOR HYPOALB) 8.7 mg/dL (8.5-10.1); SODIUM 138 mmol/L (136-145); TOTAL PROTEIN 5.8 g/dL (6.4-8.2); eGFR NON BLACK RACES > 60 (>60)
[2021-12-29] MEDS ORDERED: MICRO K EXTEN CAP 10 MEQ PO PRN (06:06)
[2021-12-29] MEDS ORDERED: POTASSIUM CHLORIDE LIQ 20 MEQ UDC PO PRN (06:06)
[2021-12-29] MEDS ORDERED: KLOR-CON PO PRN (06:06)
[2021-12-29] MEDS ORDERED: POTASSIUM CHL 40 MEQ/NS 0.45% 500 ML IV PRN (06:06)
[2021-12-29] MEDS ORDERED: POTASSIUM CHL 60 MEQ/NS 0.45% 500 ML IV PRN (06:06)
[2021-12-29] MEDS ORDERED: K-RIDER 10 MEQ/NS 100 ML 10 MEQ/100 ML BAG IV PRN (06:06)
[2021-12-29] MEDS: DILAUDID INJ IVP PRN ×4 (08:05→21:33)
[2021-12-29] MEDS: MAGNESIUM SULFATE 1 GRAM/100 mL PREMIX 1 G/100 ML BAG IV PRN ×4 (08:06→17:20)
[2021-12-29] MEDS: K-DUR TAB 20 MEQ PO PRN (08:07)
[2021-12-29] MEDS ORDERED: ROCEPHIN 1 GRAM IV PREMIX 1 G/50 ML IV.SOLN. IV SCH (09:00)
--- NOTE | 2021-12-29 09:01 | RAD ---
HISTORYpre op colonoscopySTUDYCHEST, 1 [id number]/30/2021.TECHNIQUEAP view of the chestFINDINGSPatient is significantly rotated. Cardiac and mediastinal contours are within normal limits. There is airspace opacity in the left mid to lower lung. Right lung appears clear. Cannot exclude small left pleural effusion. No pneumothorax. Soft tissue attenuation limits evaluation.IMPRESSIONAirspace opacity in the left mid to lower lung consistent with pneumonia in the appropriate clinical setting. Recommend follow-up to document resolution after appropriate treatment.Electronically signed by: Teodoro Lovelace (Dec 29, 2021 09:00:24)
[2021-12-29] MEDS: ROCEPHIN VIAL 1 GRAM 1 G in NS 100 ML IV 100 ML IV SCH (09:29)
[2021-12-29] MEDS: REGLAN INJ 10 MG VIAL IVP SCH ×4 (09:29→21:27)
[2021-12-29] MEDS: CIPRO IV 400 MG PREMIX* 400 MG/200 ML IV.SOLN. IV SCH ×2 (09:29→21:41)
[2021-12-29] MEDS: PEPCID 20 MG VIAL IVP SCH ×2 (09:29→21:34)
[2021-12-29] MEDS: PriLOSEC PO SCH ×2 (09:45→21:40)
[2021-12-29] MEDS: PLAQUENIL PO SCH ×2 (09:45→21:40)
[2021-12-29] MEDS: TAB-A-VITE PO SCH (09:45)
[2021-12-29] MEDS ORDERED: DIPRIVAN VIAL 20 ML ONE (10:29)
--- NOTE | 2021-12-29 12:45 | PCM.PROG ---
Progress Note Progress Note for Day of Date of Exam: 12/29/21 Subjective Subjective: This morning the patient is more alert and awake. She still complains of some right lower quadrant pain and she had a colonoscopy done earlier today by general surgery. The results showed that she did not have any ulcers no evidence of Crohn's disease. It was reported that she did have some nonspecific colitis. After reviewing gastroenterology's note yesterday the patient does not have a history of Crohn's disease as previously thought. However her chest x-ray yesterday showed a left retrocardiac infiltrate and today's chest x-ray showed a left lower lobe infiltrate consistent with pneumonia. We started her on IV Rocephin and also ordered a sputum culture. We will going to try to wean the patient off the Dilaudid today and get by with Toradol instead. The patient is still currently receiving IV Flagyl and Cipro for her nonspecific colitis. It is also noted today that she is mildly hypokalemic and she also has some hypomagnesemia this morning as well. We will correct that with potassium replacement protocol and magnesium replacement as well. Past Medical Family Social History Past Med/Fam/Surg Hx: No changes since H&P Allergies: Allergies amitriptyline [From Elavil] Adverse Reaction (Verified 12/09/20 16:02) barium sulfate Adverse Reaction (Verified 12/09/20 16:02) pantoprazole [From Protonix] Adverse Reaction (Verified 12/09/20 16:02) atomic fireball Adverse Reaction (Uncoded 12/09/20 16:02) Review of Systems ROS: No change since H&P Vital Signs and I&O's Vital Signs: Temperature 98.1 F Pulse Rate [Bilateral Radial] 75 Pulse Rate 80 Respiratory Rate 20 Blood Pressure [Left Arm] 128/83 Blood Pressure [Right Arm] 104/56 Blood Pressure [Standing] 133/73 Blood Pressure [Sitting] 116/63 Blood Pressure [Lying] 120/66 Blood Pressure 115/58 O2 Sat by Pulse Oximetry 98 Intake and Output: Intake & Output 12/27/21 12/28/21 12/29/21 12/30/21 11:59 11:59 11:59 11:59 Intake Total 1625 / 1625 3344 / 3344 5570 / 5570 Output Total 1570 / 1570 Balance 1625 / 1625 3344 / 3344 4000 / 4000 Physical Exam Oriented: Normal, Time, Person and Place Eyes: Normal and Other (legally blind ) Ear: Normal Nose: Normal Throat: Normal Respiratory: Normal Cardiovascular: Normal Auscultation: Bowel Sounds: Decreased (soft abdomen with moderate RLQ tenderness . no rebound ..BS hypoactive ..) Tenderness: RLQ (soft, flat abdomen with moderate o severe RLQ tenderness .. B+), Moderate and Guarding Skin: Normal Musculoskeletal: Normal Psychiatric: Normal Mood Description: Calm Affect: Anxious Speech Pattern: Clear and Appropriate Laboratory and Diagnostics Result Diagrams: 12/29/21 04:30 12/29/21 04:30 Labs: 12/28/21 08:50 Urine,Catheterized Urine Culture - Preliminary Laboratory WBC 6.7 X10^3/uL (3.6-10.0) 12/29/21 04:30 RBC 3.70 X10^6/uL (3.5-5.4) 12/29/21 04:30 Hgb 10.4 g/dL (12.0-16.0) L 12/29/21 04:30 Hct 29.4 % (36.0-47.0) L 12/29/21 04:30 MCV 79.3 fL (80.0-100.0) L 12/29/21 04:30 MCH 28.1 pg (27.0-34.0) 12/29/21 04:30 MCHC 35.4 g/dL (33.0-35.0) H 12/29/21 04:30 RDW 12.6 % (11.6-16.5) 12/29/21 04:30 Plt Count 186 X10^3/uL (150.0-450.0) 12/29/21 04:30 MPV 8.6 fL (7.4-11.0) 12/29/21 04:30 Neut % (Auto) 71.6 % (42.0-75.0) 12/29/21 04:30 Lymph % (Auto) 18.5 % (21.0-51.0) L 12/29/21 04:30 [place] % (Auto) 8.4 % (0.0-13.0) 12/29/21 04:30 Eos % (Auto) 1.3 % (0.9-2.9) 12/29/21 04:30 Baso % (Auto) 0.2 % (0.2-1.0) 12/29/21 04:30 Neut # (Auto) 4.8 x10^3/uL (2.2-4.8) 12/29/21 04:30 Lymph # (Auto) 1.2 X10^3/uL (1.3-2.9) L 12/29/21 04:30 [place] # (Auto) 0.6 x10^3/uL (0.3-0.8) 12/29/21 04:30 Eos # (Auto) 0.1 x10^3/uL (0.0-0.2) 12/29/21 04:30 Baso # (Auto) 0.0 X10^3/uL (0.0-0.1) 12/29/21 04:30 Absolute Nucleated RBC 0.0 /100WBC 12/29/21 04:30 ESR 2 MM/HOUR (0-20) 12/29/21 04:30 Sodium 138 mmol/L (136-145) 12/29/21 04:30 Corrected Sodium TNP 12/29/21 04:30 Potassium 3.3 mmol/L (3.5-5.1) L 12/29/21 04:30 Chloride 105 mmol/L (98-107) 12/29/21 04:30 Carbon Dioxide 25.5 mmol/L (21-32) 12/29/21 04:30 BUN 4 mg/dL (7-18) L 12/29/21 04:30 Creatinine 0.60 mg/dL (0.55-1.02) 12/29/21 04:30 Est GFR (MDRD) Af Amer > 60 (>60) 12/29/21 04:30 Est GFR (MDRD) Non-Af > 60 (>60) 12/29/21 04:30 Glucose 89 mg/dL (65-99) 12/29/21 04:30 Calcium 7.9 mg/dL (8.5-10.1) L 12/29/21 04:30 Corrected Calcium 8.7 mg/dL (8.5-10.1) 12/29/21 04:30 Magnesium 1.3 mg/dL (1.7-2.9) L 12/29/21 04:30 Total Bilirubin 0.40 mg/dL (0.2-1.0) 12/29/21 04:30 AST 27 Units/L (15-37) 12/29/21 04:30 ALT 19 Units/L (12-78) 12/29/21 04:30 Alkaline Phosphatase 47 Units/L (46-116) 12/29/21 04:30 C-Reactive Protein 111.90 mg/L (0-3.0) H 12/29/21 04:30 Total Protein 5.8 g/dL (6.4-8.2) L 12/29/21 04:30 Albumin 3.0 g/dL (3.4-5.0) L 12/29/21 04:30 Globulin 2.8 g/dL (2.5-4.5) 12/29/21 04:30 Albumin/Globulin Ratio 1.1 Ratio (1.1-2.1) 12/29/21 04:30 HCG, Qual Negative <10 mIU/mL 12/26/21 15:40 Specimen Type Catherized urine 12/28/21 08:50 Urine Color Yellow (YELLOW) 12/28/21 08:50 Urine Appearance Slightly hazy (CLEAR) 12/28/21 08:50 Urine pH 5.0 (5.0 - 8.0) 12/28/21 08:50 Ur Specific [place] 1.025 (1.000-1.030) 12/28/21 08:50 Urine Protein 1+ (NEGATIVE) 12/28/21 08:50 Urine Glucose (UA) Negative (NEGATIVE) 12/28/21 08:50 Urine Ketones 1+ (NEGATIVE) 12/28/21 08:50 Urine Blood Negative (NEGATIVE) 12/28/21 08:50 Urine Nitrite Negative (NEGATIVE) 12/28/21 08:50 Urine Bilirubin Negative (NEGATIVE) 12/28/21 08:50 Urine Urobilinogen Normal (NORMAL) 12/28/21 08:50 Ur Leukocyte Esterase Negative (NEGATIVE) 12/28/21 08:50 Urine RBC 0-2 /HPF (0-3) 12/28/21 08:50 Urine WBC 0-2 /HPF (0-5) 12/28/21 08:50 Ur Squamous Epith Cells Rare /HPF (NEGATIVE) 12/28/21 08:50 Urine Bacteria Trace /HPF (NEGATIVE) 12/28/21 08:50 Urine Mucus Rare /HPF (NEGATIVE) 12/28/21 08:50 Ur Culture Indicated? Yes/culture set up 12/28/21 08:50 SARS-CoV-2 (PCR) Negative (NEGATIVE) 12/26/21 15:50 Tissue Pathology To follow 12/29/21 10:53 Radiology Reviewed: Yes Plan (1) Right lower quadrant pain: Status: Acute Narrative Support Text: Colonoscopy this morning showed nonspecific colitis. Normal peristalsis and seen. No evidence of Crohn's disease Plan: Continue IV Flagyl and Cipro at this time. Wean down Dilaudid and try pain control with Toradol. (2) Anxiety: Status: Acute (3) POTS (postural orthostatic tachycardia syndrome): Status: Acute (4) Nausea and vomiting: Status: Acute Plan: IV Zofran (5) Urinary retention: Status: Acute Plan: Place Gauthier catheter today. (6) Hypokalemia: Status: Acute Plan: Potassium replacement protocol. (7) Hypomagnesemia: Status: Acute Plan: Magnesium replacement today. (8) Pneumonia involving left lung: Status: Acute Plan: Add IV Rocephin and do sputum cultures.
[2021-12-29] MEDS: PHENERGAN INJ 25 MG IM PRN (15:59)
[2021-12-29] MEDS ORDERED: ZOLOFT ONE (21:16)
[2021-12-29] MEDS: ZOLOFT PO SCH (21:40)
[2021-12-29] MEDS: ZANAFLEX PO SCH (21:41)
[2021-12-29] MEDS: PATIENT'S HOME MEDICATION PO SCH (21:41)
[2021-12-29] MEDS: GOLYTELY or GAVILYTE or Equivalent PO SCH (21:42)
[2021-12-30] MEDS: NS 1,000 ML IV 1,000 ML IV SCH ×3 (01:26→19:03)
[2021-12-30] MEDS: DILAUDID INJ IVP PRN ×4 (05:00→22:11)
[2021-12-30] MEDS: ZOFRAN INJ 4 MG VIAL IVP PRN ×2 (05:00→19:00)
[2021-12-30] MEDS: NEURONTIN TAB 600 MG PO SCH ×3 (05:27→21:00)
[2021-12-30 05:39] LABS: BASOPHILS % (AUTO) 0.4 % (0.2-1.0); EOSINOPHILS # (AUTO) 0.2 x10^3/uL (0.0-0.2); HEMATOCRIT 26.9 % (36.0-47.0); HEMOGLOBIN 9.4 g/dL (12.0-16.0); LYMPHOCYTES # (AUTO) 1.5 X10^3/uL (1.3-2.9); LYMPHOCYTES % (AUTO) 37.6 % (21.0-51.0); MEAN CORPUSCULAR HEMOGLOBIN 27.9 pg (27.0-34.0); MEAN CORPUSCULAR HGB CONC 34.9 g/dL (33.0-35.0); MEAN CORPUSCULAR VOLUME 79.7 fL (80.0-100.0); MEAN PLATELET VOLUME 8.5 fL (7.4-11.0); MONOCYTES # (AUTO) 0.3 x10^3/uL (0.3-0.8); MONOCYTES % (AUTO) 8.1 % (0.0-13.0); NEUTROPHILS % (AUTO) 49.9 % (42.0-75.0); RED BLOOD COUNT 3.38 X10^6/uL (3.5-5.4); RED CELL DISTRIBUTION WIDTH 12.9 % (11.6-16.5)
[2021-12-30 05:51] LABS: ALANINE AMINOTRANSFERASE 17 Units/L (12-78); ALBUMIN 2.6 g/dL (3.4-5.0); ALKALINE PHOSPHATASE 38 Units/L (46-116); ASPARTATE AMINO TRANSFERASE 18 Units/L (15-37); BLOOD UREA NITROGEN 2 mg/dL (7-18); CALCIUM 7.3 mg/dL (8.5-10.1); CARBON DIOXIDE 28.4 mmol/L (21-32); CHLORIDE 107 mmol/L (98-107); COR CA(FOR HYPOALB) 8.4 mg/dL (8.5-10.1); CREATININE 0.48 mg/dL (0.55-1.02); SODIUM 140 mmol/L (136-145); TOTAL PROTEIN 5.2 g/dL (6.4-8.2); eGFR NON BLACK RACES > 60 (>60)
[2021-12-30] MEDS: TORADOL 30 MG VIAL IVP PRN ×3 (06:23→19:00)
[2021-12-30] MEDS: PHENERGAN INJ 25 MG IM PRN ×3 (08:00→22:10)
[2021-12-30] MEDS: ROCEPHIN VIAL 1 GRAM 1 G in NS 100 ML IV 100 ML IV SCH (08:00)
[2021-12-30] MEDS: PLAQUENIL PO SCH ×2 (08:33→20:29)
[2021-12-30] MEDS: TAB-A-VITE PO SCH (08:34)
[2021-12-30] MEDS: PriLOSEC PO SCH ×2 (08:50→20:29)
[2021-12-30] MEDS: PEPCID 20 MG VIAL IVP SCH ×2 (09:00→20:28)
[2021-12-30] MEDS: CIPRO IV 400 MG PREMIX* 400 MG/200 ML IV.SOLN. IV SCH ×2 (09:00→20:27)
[2021-12-30] MEDS: REGLAN INJ 10 MG VIAL IVP SCH ×4 (09:00→20:28)
[2021-12-30] MEDS ORDERED: DIPRIVAN VIAL 20 ML ONE (11:09)
[2021-12-30] MEDS: MAGNESIUM SULFATE 1 GRAM/100 mL PREMIX 1 G/100 ML BAG IV PRN ×2 (15:33→19:03)
[2021-12-30] MEDS: CARAFATE PO SCH (17:20)
[2021-12-30] MEDS ORDERED: ZOLOFT ONE (19:30)
[2021-12-30] MEDS: ZOLOFT PO SCH (20:28)
[2021-12-30] MEDS: ZANAFLEX PO SCH (20:29)
[2021-12-30] MEDS: PATIENT'S HOME MEDICATION PO SCH (20:30)
[2021-12-30] MEDS: GOLYTELY or GAVILYTE or Equivalent PO SCH (21:00)
[2021-12-30] MEDS: XOPENEX 1.25 MG/3 ML NEBULE NEB SCH (21:14)
[2021-12-30] MEDS ORDERED: XOPENEX 1.25 MG/3 ML NEBULE NEB SCH (22:00)
[2021-12-31] MEDS: NS 1,000 ML IV 1,000 ML IV SCH ×4 (02:08→20:04)
[2021-12-31] MEDS: DILAUDID INJ IVP PRN ×5 (02:24→21:50)
[2021-12-31] MEDS: ZOFRAN INJ 4 MG VIAL IVP PRN ×4 (02:25→22:07)
[2021-12-31] MEDS: TORADOL 30 MG VIAL IVP PRN ×2 (04:44→15:00)
[2021-12-31] MEDS: PHENERGAN INJ 25 MG IM PRN ×2 (04:44→12:10)
[2021-12-31 05:34] LABS: BASOPHILS % (AUTO) 0.4 % (0.2-1.0); EOSINOPHILS # (AUTO) 0.1 x10^3/uL (0.0-0.2); EOSINOPHILS % (AUTO) 4.4 % (0.9-2.9); HEMATOCRIT 27.2 % (36.0-47.0); HEMOGLOBIN 9.4 g/dL (12.0-16.0); LYMPHOCYTES # (AUTO) 1.4 X10^3/uL (1.3-2.9); LYMPHOCYTES % (AUTO) 43.1 % (21.0-51.0); MEAN CORPUSCULAR HEMOGLOBIN 27.8 pg (27.0-34.0); MEAN CORPUSCULAR HGB CONC 34.7 g/dL (33.0-35.0); MEAN CORPUSCULAR VOLUME 80.2 fL (80.0-100.0); MEAN PLATELET VOLUME 8.9 fL (7.4-11.0); MONOCYTES # (AUTO) 0.3 x10^3/uL (0.3-0.8); MONOCYTES % (AUTO) 8.3 % (0.0-13.0); NEUTROPHILS # (AUTO) 1.5 x10^3/uL (2.2-4.8); NEUTROPHILS % (AUTO) 43.8 % (42.0-75.0); RED BLOOD COUNT 3.39 X10^6/uL (3.5-5.4); WHITE BLOOD COUNT 3.4 X10^3/uL (3.6-10.0)
[2021-12-31 05:54] LABS: ALANINE AMINOTRANSFERASE 15 Units/L (12-78); ALBUMIN 2.5 g/dL (3.4-5.0); ALKALINE PHOSPHATASE 38 Units/L (46-116); ASPARTATE AMINO TRANSFERASE 14 Units/L (15-37); BLOOD UREA NITROGEN 1 mg/dL (7-18); CALCIUM 7.5 mg/dL (8.5-10.1); CARBON DIOXIDE 27.8 mmol/L (21-32); CHLORIDE 109 mmol/L (98-107); COR CA(FOR HYPOALB) 8.7 mg/dL (8.5-10.1); CREATININE 0.43 mg/dL (0.55-1.02); SODIUM 143 mmol/L (136-145); TOTAL PROTEIN 5.1 g/dL (6.4-8.2); eGFR NON BLACK RACES > 60 (>60)
[2021-12-31] MEDS: XOPENEX 1.25 MG/3 ML NEBULE NEB SCH ×3 (06:21→20:30)
[2021-12-31] MEDS: CARAFATE PO SCH ×3 (06:43→16:17)
[2021-12-31] MEDS: NEURONTIN TAB 600 MG PO SCH ×3 (06:43→21:07)
[2021-12-31] MEDS: PEPCID 20 MG VIAL IVP SCH ×2 (08:55→20:09)
[2021-12-31] MEDS: ROCEPHIN VIAL 1 GRAM 1 G in NS 100 ML IV 100 ML IV SCH (08:55)
[2021-12-31] MEDS: REGLAN INJ 10 MG VIAL IVP SCH ×4 (08:55→20:08)
[2021-12-31] MEDS: K-DUR TAB 20 MEQ PO PRN (08:55)
[2021-12-31] MEDS: PriLOSEC PO SCH ×2 (08:55→20:06)
[2021-12-31] MEDS: TAB-A-VITE PO SCH (08:55)
[2021-12-31] MEDS: PLAQUENIL PO SCH ×2 (08:55→20:06)
--- NOTE | 2021-12-31 09:28 | DR.PROGNOT ---
Hospital Progress Notes - Progress Note for Day of: Progress Note Date: 12/31/21 - Chief Complaint Chief Complaint: EGD showed moderate to severe gastritis . still having RLQ pain with nausea .. moderate hypotention '. unable to tolerate oral intake .. - Past Medical Family Social History Past Med/Fam/Surg Hx: No changes since H&P Allergies: Allergies amitriptyline [From Elavil] Adverse Reaction (Verified 12/09/20 16:02) barium sulfate Adverse Reaction (Verified 12/09/20 16:02) pantoprazole [From Protonix] Adverse Reaction (Verified 12/09/20 16:02) atomic fireball Adverse Reaction (Uncoded 12/09/20 16:02) - Review Of Systems ROS: No change since H&P - Vital Signs Vital Signs: Temperature 98.6 F Pulse Rate [Bilateral Radial] 75 Pulse Rate 72 Respiratory Rate 18 Blood Pressure [Left Arm] 128/83 Blood Pressure [Right Arm] 104/56 Blood Pressure [Standing] 133/73 Blood Pressure [Sitting] 116/63 Blood Pressure [Lying] 120/66 Blood Pressure 109/62 O2 Sat by Pulse Oximetry 97 - Physical Exam Oriented: Normal, Time, Person, Place Eyes: Normal, Other (legally blind) Ear: Normal Nose: Normal Throat: Normal Respiratory: Normal Cardiovascular: Normal GI:Auscultation: Decreased (soft abdomen with moderate RLQ tenderness . no rebou nd ..BS hypoactive ..) GI:Palpation: Normal GI: Tenderness: RLQ (soft, flat abdomen with moderate o severe RLQ tenderness .. B+), Guarding, Moderate Skin: Normal Musculoskeletal: Normal Psychiatric: Normal Mood Description: Calm Affect: Anxious Speech Pattern: Clear, Appropriate - Laboratory and Diagnostics Result Diagrams: 12/31/21 04:05 12/31/21 04:05 Labs: 12/28/21 08:50 Urine,Catheterized Urine Culture - Final Laboratory WBC 3.4 X10^3/uL (3.6-10.0) L 12/31/21 04:05 RBC 3.39 X10^6/uL (3.5-5.4) L 12/31/21 04:05 Hgb 9.4 g/dL (12.0-16.0) L 12/31/21 04:05 Hct 27.2 % (36.0-47.0) L 12/31/21 04:05 MCV 80.2 fL (80.0-100.0) 12/31/21 04:05 MCH 27.8 pg (27.0-34.0) 12/31/21 04:05 MCHC 34.7 g/dL (33.0-35.0) 12/31/21 04:05 RDW 13.0 % (11.6-16.5) 12/31/21 04:05 Plt Count 187 X10^3/uL (150.0-450.0) 12/31/21 04:05 MPV 8.9 fL (7.4-11.0) 12/31/21 04:05 Neut % (Auto) 43.8 % (42.0-75.0) 12/31/21 04:05 Lymph % (Auto) 43.1 % (21.0-51.0) 12/31/21 04:05 [place] % (Auto) 8.3 % (0.0-13.0) 12/31/21 04:05 Eos % (Auto) 4.4 % (0.9-2.9) H 12/31/21 04:05 Baso % (Auto) 0.4 % (0.2-1.0) 12/31/21 04:05 Neut # (Auto) 1.5 x10^3/uL (2.2-4.8) L 12/31/21 04:05 Lymph # (Auto) 1.4 X10^3/uL (1.3-2.9) 12/31/21 04:05 [place] # (Auto) 0.3 x10^3/uL (0.3-0.8) 12/31/21 04:05 Eos # (Auto) 0.1 x10^3/uL (0.0-0.2) 12/31/21 04:05 Baso # (Auto) 0.0 X10^3/uL (0.0-0.1) 12/31/21 04:05 Absolute Nucleated RBC 0.0 /100WBC 12/31/21 04:05 ESR 2 MM/HOUR (0-20) 12/29/21 04:30 Sodium 143 mmol/L (136-145) 12/31/21 04:05 Corrected Sodium TNP 12/31/21 04:05 Potassium 3.4 mmol/L (3.5-5.1) L 12/31/21 04:05 Chloride 109 mmol/L (98-107) H 12/31/21 04:05 Carbon Dioxide 27.8 mmol/L (21-32) 12/31/21 04:05 BUN 1 mg/dL (7-18) L 12/31/21 04:05 Creatinine 0.43 mg/dL (0.55-1.02) L 12/31/21 04:05 Est GFR (MDRD) Af Amer > 60 (>60) 12/31/21 04:05 Est GFR (MDRD) Non-Af > 60 (>60) 12/31/21 04:05 Glucose 95 mg/dL (65-99) 12/31/21 04:05 Calcium 7.5 mg/dL (8.5-10.1) L 12/31/21 04:05 Corrected Calcium 8.7 mg/dL (8.5-10.1) 12/31/21 04:05 Magnesium 1.5 mg/dL (1.7-2.9) L 12/30/21 04:28 Total Bilirubin 0.20 mg/dL (0.2-1.0) 12/31/21 04:05 AST 14 Units/L (15-37) L 12/31/21 04:05 ALT 15 Units/L (12-78) 12/31/21 04:05 Alkaline Phosphatase 38 Units/L (46-116) L 12/31/21 04:05 C-Reactive Protein 44.70 mg/L (0-3.0) H 12/30/21 15:15 Total Protein 5.1 g/dL (6.4-8.2) L 12/31/21 04:05 Albumin 2.5 g/dL (3.4-5.0) L 12/31/21 04:05 Globulin 2.6 g/dL (2.5-4.5) 12/31/21 04:05 Albumin/Globulin Ratio 1.0 Ratio (1.1-2.1) L 12/31/21 04:05 HCG, Qual Negative <10 mIU/mL 12/26/21 15:40 Specimen Type Catherized urine 12/28/21 08:50 Urine Color Yellow (YELLOW) 12/28/21 08:50 Urine Appearance Slightly hazy (CLEAR) 12/28/21 08:50 Urine pH 5.0 (5.0 - 8.0) 12/28/21 08:50 Ur Specific [place] 1.025 (1.000-1.030) 12/28/21 08:50 Urine Protein 1+ (NEGATIVE) 12/28/21 08:50 Urine Glucose (UA) Negative (NEGATIVE) 12/28/21 08:50 Urine Ketones 1+ (NEGATIVE) 12/28/21 08:50 Urine Blood Negative (NEGATIVE) 12/28/21 08:50 Urine Nitrite Negative (NEGATIVE) 12/28/21 08:50 Urine Bilirubin Negative (NEGATIVE) 12/28/21 08:50 Urine Urobilinogen Normal (NORMAL) 12/28/21 08:50 Ur Leukocyte Esterase Negative (NEGATIVE) 12/28/21 08:50 Urine RBC 0-2 /HPF (0-3) 12/28/21 08:50 Urine WBC 0-2 /HPF (0-5) 12/28/21 08:50 Ur Squamous Epith Cells Rare /HPF (NEGATIVE) 12/28/21 08:50 Urine Bacteria Trace /HPF (NEGATIVE) 12/28/21 08:50 Urine Mucus Rare /HPF (NEGATIVE) 12/28/21 08:50 Ur Culture Indicated? Yes/culture set up 12/28/21 08:50 SARS-CoV-2 (PCR) Negative (NEGATIVE) 12/26/21 15:50 Tissue Pathology To follow 12/30/21 11:17 - Assessment and Plan 1: abdominal pain ,. possible IBD . RT ovarian cyst 3.5 cm. same IVF. d/c antibiotics. for diagnostic laparoscopy and appendectomy ..
[2021-12-31] MEDS: CIPRO IV 400 MG PREMIX* 400 MG/200 ML IV.SOLN. IV SCH ×2 (09:50→20:09)
[2021-12-31] MEDS: NYSTATIN SUSP MT SCH ×3 (14:15→20:08)
[2021-12-31] MEDS ORDERED: COMPAZINE INJ ONE ×2 (14:19→19:56)
[2021-12-31] MEDS: COMPAZINE INJ IVP SCH ×2 (15:00→21:48)
--- NOTE | 2021-12-31 15:17 | RAD ---
HISTORYHX ASTHMA. SX GB, ORTHO. coughingSTUDYCHEST, PA/LAT ADULTCOMPARISONSeptember 2019FINDINGSThe trachea is midline. The cardiac silhouette is unremarkable. The lungs demonstrates persistent left lower lobe airspace disease slightly worse compared to prior with interval development of new airspace disease in the right lung base the bony thorax is unremarkable.IMPRESSIONSlight interval worsening in left lower lobe pneumonia with a new airspace opacity in the right lower lobe continued follow-up is recommended.Electronically signed by: LELIA HENRIQUEZ (Dec 31, 2021 15:16:22)
[2021-12-31] MEDS ORDERED: DIFLUCAN 200 MG IV PREMIX* 200 MG/100 ML BAG IV ONE (16:20)
[2021-12-31] MEDS: DIFLUCAN 100 MG IV (MIX by PHARMACY)* 100 MG/50 ML BAG IV SCH (16:30)
[2021-12-31] MEDS: MAGNESIUM SULFATE 1 GRAM/100 mL PREMIX 1 G/100 ML BAG IV PRN ×2 (17:00→22:00)
[2021-12-31] MEDS ORDERED: ZOLOFT ONE (19:17)
[2021-12-31] MEDS: PATIENT'S HOME MEDICATION PO SCH (20:06)
[2021-12-31] MEDS: ZANAFLEX PO SCH (20:07)
[2021-12-31] MEDS: ZOLOFT PO SCH (20:07)
[2021-12-31] MEDS: GOLYTELY or GAVILYTE or Equivalent PO SCH (21:07)
[2022-01-01] MEDS: NS 1,000 ML IV 1,000 ML IV SCH ×3 (04:17→21:57)
[2022-01-01] MEDS: TORADOL 30 MG VIAL IVP PRN (04:31)
[2022-01-01] MEDS: ZOFRAN INJ 4 MG VIAL IVP PRN ×2 (04:31→20:59)
[2022-01-01] MEDS ORDERED: COMPAZINE INJ ONE (05:01)
[2022-01-01] MEDS: COMPAZINE INJ IVP SCH ×3 (05:34→21:46)
[2022-01-01 05:41] LABS: BASOPHILS % (AUTO) 0.2 % (0.2-1.0); EOSINOPHILS # (AUTO) 0.2 x10^3/uL (0.0-0.2); EOSINOPHILS % (AUTO) 3.4 % (0.9-2.9); HEMATOCRIT 29.5 % (36.0-47.0); HEMOGLOBIN 10.5 g/dL (12.0-16.0); LYMPHOCYTES # (AUTO) 1.4 X10^3/uL (1.3-2.9); LYMPHOCYTES % (AUTO) 26.4 % (21.0-51.0); MEAN CORPUSCULAR HEMOGLOBIN 28.3 pg (27.0-34.0); MEAN CORPUSCULAR HGB CONC 35.6 g/dL (33.0-35.0); MEAN CORPUSCULAR VOLUME 79.5 fL (80.0-100.0); MEAN PLATELET VOLUME 8.5 fL (7.4-11.0); MONOCYTES # (AUTO) 0.6 x10^3/uL (0.3-0.8); MONOCYTES % (AUTO) 11.1 % (0.0-13.0); NEUTROPHILS # (AUTO) 3.1 x10^3/uL (2.2-4.8); NEUTROPHILS % (AUTO) 58.9 % (42.0-75.0); RED BLOOD COUNT 3.71 X10^6/uL (3.5-5.4); RED CELL DISTRIBUTION WIDTH 12.7 % (11.6-16.5); WHITE BLOOD COUNT 5.3 X10^3/uL (3.6-10.0)
[2022-01-01 05:50] LABS: ALANINE AMINOTRANSFERASE 12 Units/L (12-78); ALBUMIN 2.7 g/dL (3.4-5.0); ALKALINE PHOSPHATASE 43 Units/L (46-116); ASPARTATE AMINO TRANSFERASE 21 Units/L (15-37); BLOOD UREA NITROGEN 1 mg/dL (7-18); CALCIUM 7.7 mg/dL (8.5-10.1); CARBON DIOXIDE 26.8 mmol/L (21-32); CHLORIDE 105 mmol/L (98-107); COR CA(FOR HYPOALB) 8.7 mg/dL (8.5-10.1); CREATININE 0.47 mg/dL (0.55-1.02); MAGNESIUM 1.6 mg/dL (1.7-2.9); SODIUM 139 mmol/L (136-145); TOTAL PROTEIN 5.6 g/dL (6.4-8.2); eGFR NON BLACK RACES > 60 (>60)
[2022-01-01] MEDS: XOPENEX 1.25 MG/3 ML NEBULE NEB SCH ×3 (05:57→20:29)
[2022-01-01] MEDS: NEURONTIN TAB 600 MG PO SCH ×3 (06:04→21:47)
[2022-01-01] MEDS: CARAFATE PO SCH ×3 (06:05→17:19)
[2022-01-01] MEDS: REGLAN INJ 10 MG VIAL IVP SCH ×4 (09:00→20:55)
[2022-01-01] MEDS: DILAUDID INJ IVP PRN ×4 (09:00→20:59)
[2022-01-01] MEDS: DIFLUCAN 200 MG IV PREMIX* 200 MG/100 ML BAG IV SCH (09:00)
[2022-01-01] MEDS: PEPCID 20 MG VIAL IVP SCH ×2 (09:00→20:54)
[2022-01-01] MEDS: PHENERGAN INJ 25 MG IM PRN ×2 (09:00→14:30)
[2022-01-01] MEDS: PLAQUENIL PO SCH ×4 (09:00→20:53)
[2022-01-01] MEDS: TAB-A-VITE PO SCH ×3 (09:00→13:30)
[2022-01-01] MEDS ORDERED: ZEMURON 100 MG VIAL ONE (09:31)
[2022-01-01] MEDS ORDERED: QUELICIN (OR ANECTINE) ONE (09:31)
[2022-01-01] MEDS ORDERED: DIPRIVAN VIAL 20 ML ONE (09:31)
[2022-01-01] MEDS ORDERED: XYLOCAINE 2 % (PLAIN) ONE (09:32)
[2022-01-01] MEDS ORDERED: FENTANYL VIAL INJ 100 mcg ONE (09:32)
[2022-01-01] MEDS ORDERED: VERSED ONE (09:34)
[2022-01-01] MEDS: ROCEPHIN VIAL 1 GRAM 1 G in NS 100 ML IV 100 ML IV SCH (09:40)
[2022-01-01] MEDS ORDERED: LR 1,000 ML IV 1,000 ML IV ONE (09:49)
[2022-01-01] MEDS: DIFLUCAN 100 MG IV (MIX by PHARMACY)* 100 MG/50 ML BAG IV SCH (09:50)
[2022-01-01] MEDS: PriLOSEC PO SCH ×3 (09:53→20:54)
[2022-01-01] MEDS: NYSTATIN SUSP MT SCH ×4 (09:54→20:55)
[2022-01-01] MEDS ORDERED: NS 1,000 ML IV 1,000 ML ONE (10:23)
[2022-01-01] MEDS ORDERED: SUPRANE ONE (10:54)
[2022-01-01] MEDS ORDERED: BACTROBAN TOPICAL OINT TOP ONE (11:43)
[2022-01-01] MEDS ORDERED: ZOFRAN INJ 4 MG VIAL ONE (11:45)
[2022-01-01] MEDS ORDERED: TORADOL 30 MG VIAL ONE (11:45)
[2022-01-01] MEDS ORDERED: BRIDION ONE (11:46)
[2022-01-01] MEDS ORDERED: BENADRYL INJ 50 MG VIAL IVP PRN (12:07)
[2022-01-01] MEDS ORDERED: REGLAN INJ 10 MG VIAL IVP PRN (12:07)
[2022-01-01] MEDS ORDERED: PHENERGAN INJ 25 MG IM PRN (12:07)
[2022-01-01] MEDS ORDERED: DILAUDID INJ IVP PRN (12:07)
[2022-01-01] MEDS ORDERED: ZOFRAN INJ 4 MG VIAL IVP PRN (12:07)
[2022-01-01] MEDS ORDERED: BARHEMSYS INJ IVP PRN (12:07)
[2022-01-01] MEDS: CIPRO IV 400 MG PREMIX* 400 MG/200 ML IV.SOLN. IV SCH ×2 (13:03→20:56)
[2022-01-01] MEDS: K-DUR TAB 20 MEQ PO PRN (13:30)
[2022-01-01] MEDS: MAGNESIUM SULFATE 1 GRAM/100 mL PREMIX 1 G/100 ML BAG IV PRN ×2 (14:30→17:20)
--- NOTE | 2022-01-01 16:51 | PCM.PROG ---
Progress Note Progress Note for Day of Date of Exam: 01/01/22 Subjective Subjective: Patient reports she is not feeling any better now since today she came in. Chest x-ray reveals that she has a right lower lobe infiltrate now along with the left lower lobe infiltrate consistent with pneumonia. I spoke with general surgeon, Dr. Gutiérrez this morning and he plans on doing an appendectomy with exploratory laparotomy later in the day if it is approved by her insurance. Patient is currently on Cipro and Flagyl for colitis seen on colonoscopy and on Rocephin for her pneumonia. Past Medical Family Social History Past Med/Fam/Surg Hx: No changes since H&P Allergies: Allergies amitriptyline [From Elavil] Adverse Reaction (Verified 12/09/20 16:02) barium sulfate Adverse Reaction (Verified 12/09/20 16:02) pantoprazole [From Protonix] Adverse Reaction (Verified 12/09/20 16:02) atomic fireball Adverse Reaction (Uncoded 12/09/20 16:02) Review of Systems ROS: No change since H&P Vital Signs and I&O's Vital Signs: Temperature 98.2 F Pulse Rate [Bilateral Radial] 75 Pulse Rate 83 Respiratory Rate 18 Blood Pressure [Left Arm] 128/83 Blood Pressure [Right Arm] 104/56 Blood Pressure [Standing] 133/73 Blood Pressure [Sitting] 116/63 Blood Pressure [Lying] 120/66 Blood Pressure 108/60 O2 Sat by Pulse Oximetry 95 Intake and Output: Intake & Output 12/30/21 12/31/21 01/01/22 01/02/22 11:59 11:59 11:59 11:59 Intake Total 2347 / 2347 3332 / 3332 4181 / 4181 150 / 150 Output Total 1805 / 1805 2250 / 2250 2729 / 2729 450 / 450 Balance 542 / 542 1082 / 1082 1452 / 1452 -300 / -300 Physical Exam Oriented: Normal, Time, Person and Place Eyes: Normal and Other (legally blind ) Ear: Normal Nose: Normal Throat: Normal Respiratory: Normal Cardiovascular: Normal Auscultation: Bowel Sounds: Decreased (soft abdomen with moderate RLQ tenderness . no rebound ..BS hypoactive ..) Tenderness: RLQ (soft, flat abdomen with moderate o severe RLQ tenderness .. B+), Moderate and Guarding Skin: Normal Musculoskeletal: Normal Psychiatric: Normal Mood Description: Calm Affect: Anxious Speech Pattern: Clear and Appropriate Laboratory and Diagnostics Result Diagrams: 01/01/22 05:01 01/01/22 05:01 Labs: 12/28/21 08:50 Urine,Catheterized Urine Culture - Final Laboratory WBC 5.3 X10^3/uL (3.6-10.0) 01/01/22 05:01 RBC 3.71 X10^6/uL (3.5-5.4) 01/01/22 05:01 Hgb 10.5 g/dL (12.0-16.0) L 01/01/22 05:01 Hct 29.5 % (36.0-47.0) L 01/01/22 05:01 MCV 79.5 fL (80.0-100.0) L 01/01/22 05:01 MCH 28.3 pg (27.0-34.0) 01/01/22 05:01 MCHC 35.6 g/dL (33.0-35.0) H 01/01/22 05:01 RDW 12.7 % (11.6-16.5) 01/01/22 05:01 Plt Count 234 X10^3/uL (150.0-450.0) 01/01/22 05:01 MPV 8.5 fL (7.4-11.0) 01/01/22 05:01 Neut % (Auto) 58.9 % (42.0-75.0) 01/01/22 05:01 Lymph % (Auto) 26.4 % (21.0-51.0) 01/01/22 05:01 [place] % (Auto) 11.1 % (0.0-13.0) 01/01/22 05:01 Eos % (Auto) 3.4 % (0.9-2.9) H 01/01/22 05:01 Baso % (Auto) 0.2 % (0.2-1.0) 01/01/22 05:01 Neut # (Auto) 3.1 x10^3/uL (2.2-4.8) 01/01/22 05:01 Lymph # (Auto) 1.4 X10^3/uL (1.3-2.9) 01/01/22 05:01 [place] # (Auto) 0.6 x10^3/uL (0.3-0.8) 01/01/22 05:01 Eos # (Auto) 0.2 x10^3/uL (0.0-0.2) 01/01/22 05:01 Baso # (Auto) 0.0 X10^3/uL (0.0-0.1) 01/01/22 05:01 Absolute Nucleated RBC 0.0 /100WBC 01/01/22 05:01 ESR 2 MM/HOUR (0-20) 12/29/21 04:30 Sodium 139 mmol/L (136-145) 01/01/22 05:01 Corrected Sodium TNP 01/01/22 05:01 Potassium 3.4 mmol/L (3.5-5.1) L 01/01/22 05:01 Chloride 105 mmol/L (98-107) 01/01/22 05:01 Carbon Dioxide 26.8 mmol/L (21-32) 01/01/22 05:01 BUN 1 mg/dL (7-18) L 01/01/22 05:01 Creatinine 0.47 mg/dL (0.55-1.02) L 01/01/22 05:01 Est GFR (MDRD) Af Amer > 60 (>60) 01/01/22 05:01 Est GFR (MDRD) Non-Af > 60 (>60) 01/01/22 05:01 Glucose 97 mg/dL (65-99) 01/01/22 05:01 Calcium 7.7 mg/dL (8.5-10.1) L 01/01/22 05:01 Corrected Calcium 8.7 mg/dL (8.5-10.1) 01/01/22 05:01 Magnesium 1.6 mg/dL (1.7-2.9) L 01/01/22 05:01 Total Bilirubin 0.40 mg/dL (0.2-1.0) 01/01/22 05:01 AST 21 Units/L (15-37) 01/01/22 05:01 ALT 12 Units/L (12-78) 01/01/22 05:01 Alkaline Phosphatase 43 Units/L (46-116) L 01/01/22 05:01 C-Reactive Protein 44.70 mg/L (0-3.0) H 12/30/21 15:15 Total Protein 5.6 g/dL (6.4-8.2) L 01/01/22 05:01 Albumin 2.7 g/dL (3.4-5.0) L 01/01/22 05:01 Globulin 2.9 g/dL (2.5-4.5) 01/01/22 05:01 Albumin/Globulin Ratio 0.9 Ratio (1.1-2.1) L 01/01/22 05:01 HCG, Qual Negative <10 mIU/mL 12/26/21 15:40 Specimen Type Catherized urine 12/28/21 08:50 Urine Color Yellow (YELLOW) 12/28/21 08:50 Urine Appearance Slightly hazy (CLEAR) 12/28/21 08:50 Urine pH 5.0 (5.0 - 8.0) 12/28/21 08:50 Ur Specific [place] 1.025 (1.000-1.030) 12/28/21 08:50 Urine Protein 1+ (NEGATIVE) 12/28/21 08:50 Urine Glucose (UA) Negative (NEGATIVE) 12/28/21 08:50 Urine Ketones 1+ (NEGATIVE) 12/28/21 08:50 Urine Blood Negative (NEGATIVE) 12/28/21 08:50 Urine Nitrite Negative (NEGATIVE) 12/28/21 08:50 Urine Bilirubin Negative (NEGATIVE) 12/28/21 08:50 Urine Urobilinogen Normal (NORMAL) 12/28/21 08:50 Ur Leukocyte Esterase Negative (NEGATIVE) 12/28/21 08:50 Urine RBC 0-2 /HPF (0-3) 12/28/21 08:50 Urine WBC 0-2 /HPF (0-5) 12/28/21 08:50 Ur Squamous Epith Cells Rare /HPF (NEGATIVE) 12/28/21 08:50 Urine Bacteria Trace /HPF (NEGATIVE) 12/28/21 08:50 Urine Mucus Rare /HPF (NEGATIVE) 12/28/21 08:50 Ur Culture Indicated? Yes/culture set up 12/28/21 08:50 Stool H. pylori Ag Negative (NEGATIVE) 12/31/21 20:33 SARS-CoV-2 (PCR) Negative (NEGATIVE) 01/01/22 13:00 Influenza Type A (PCR) Negative (NEGATIVE) 01/01/22 13:00 Influenza Type B (PCR) Negative (NEGATIVE) 01/01/22 13:00 RSV (PCR) Negative (NEGATIVE) 01/01/22 13:00 Tissue Pathology To follow 01/01/22 11:36 Plan (1) Right lower quadrant pain: Status: Acute Plan: Continue IV Flagyl and Cipro at this time. Wean down Dilaudid and try pain control with Toradol. (2) Anxiety: Status: Acute (3) POTS (postural orthostatic tachycardia syndrome): Status: Acute (4) Nausea and vomiting: Status: Acute Plan: IV Zofran (5) Urinary retention: Status: Acute Plan: Place Gauth[place] catheter today. (6) Hypokalemia: Status: Acute Plan: Potassium replacement protocol. (7) Hypomagnesemia: Status: Acute Plan: Magnesium replacement today. (8) Pneumonia involving left lung: Status: Acute Plan: Add IV Rocephin and do sputum cultures. (9) Bilateral pneumonia: Status: Acute Plan: Continue current treatment with IV Rocephin. Patient also is on IV Cipro as well. (10) Colitis: Status: Acute Plan: Continue IV ciprofloxacin and metronidazole at this time.
[2022-01-01] MEDS ORDERED: ZOLOFT ONE (19:07)
[2022-01-01] MEDS: PATIENT'S HOME MEDICATION PO SCH (20:52)
[2022-01-01] MEDS: ZOLOFT PO SCH (20:53)
[2022-01-01] MEDS: ZANAFLEX PO SCH (20:54)
[2022-01-01] MEDS: GOLYTELY or GAVILYTE or Equivalent PO SCH (21:47)
[2022-01-02] MEDS: DILAUDID INJ IVP PRN ×4 (01:32→20:41)
[2022-01-02] MEDS: NS 1,000 ML IV 1,000 ML IV SCH ×3 (05:31→21:19)
[2022-01-02 05:32] LABS: BASOPHILS % (AUTO) 0.5 % (0.2-1.0); EOSINOPHILS # (AUTO) 0.2 x10^3/uL (0.0-0.2); EOSINOPHILS % (AUTO) 4.4 % (0.9-2.9); HEMATOCRIT 25.7 % (36.0-47.0); HEMOGLOBIN 9.1 g/dL (12.0-16.0); LYMPHOCYTES # (AUTO) 1.5 X10^3/uL (1.3-2.9); LYMPHOCYTES % (AUTO) 34.8 % (21.0-51.0); MEAN CORPUSCULAR HEMOGLOBIN 28.1 pg (27.0-34.0); MEAN CORPUSCULAR HGB CONC 35.4 g/dL (33.0-35.0); MEAN CORPUSCULAR VOLUME 79.4 fL (80.0-100.0); MEAN PLATELET VOLUME 7.7 fL (7.4-11.0); MONOCYTES # (AUTO) 0.4 x10^3/uL (0.3-0.8); MONOCYTES % (AUTO) 10.5 % (0.0-13.0); NEUTROPHILS # (AUTO) 2.1 x10^3/uL (2.2-4.8); NEUTROPHILS % (AUTO) 49.8 % (42.0-75.0); RED BLOOD COUNT 3.24 X10^6/uL (3.5-5.4); WHITE BLOOD COUNT 4.2 X10^3/uL (3.6-10.0)
[2022-01-02] MEDS: NEURONTIN TAB 600 MG PO SCH ×3 (05:32→21:20)
[2022-01-02] MEDS: COMPAZINE INJ IVP SCH ×3 (05:32→21:20)
[2022-01-02] MEDS: CARAFATE PO SCH ×3 (05:32→17:21)
[2022-01-02] MEDS: XOPENEX 1.25 MG/3 ML NEBULE NEB SCH ×3 (05:35→21:30)
[2022-01-02 05:47] LABS: ALANINE AMINOTRANSFERASE 9 Units/L (12-78); ALBUMIN 2.4 g/dL (3.4-5.0); ALKALINE PHOSPHATASE 38 Units/L (46-116); ASPARTATE AMINO TRANSFERASE 12 Units/L (15-37); BLOOD UREA NITROGEN 1 mg/dL (7-18); CALCIUM 7.6 mg/dL (8.5-10.1); CARBON DIOXIDE 27.4 mmol/L (21-32); CHLORIDE 108 mmol/L (98-107); COR CA(FOR HYPOALB) 8.9 mg/dL (8.5-10.1); CREATININE 0.45 mg/dL (0.55-1.02); MAGNESIUM 1.5 mg/dL (1.7-2.9); SODIUM 142 mmol/L (136-145); TOTAL PROTEIN 5.1 g/dL (6.4-8.2); eGFR NON BLACK RACES > 60 (>60)
--- NOTE | 2022-01-02 06:43 | RAD ---
HISTORYCough, pneumoniaSTUDYChest AP [id number]/2022FINDINGSThe heart remains enlarged. No congestive heart failure is noted. There is minimal perihilar subsegmental atelectasis on the right. Previously present right basilar subsegmental atelectasis has resolved. Left upper lung field is clear. Left lower lobe consolidating pneumonia is unchanged. Bony thorax is unremarkable.IMPRESSIONNo change left lower lobe pneumoniaNo change cardiomegaly without congestive heart failureResolution of the previously present right basilar subsegmental atelectasisElectronically signed by: AMINA LOCKHART (Jan 02, 2022 06:40:44)
[2022-01-02] MEDS: PriLOSEC PO SCH ×2 (09:09→20:01)
[2022-01-02] MEDS: REGLAN INJ 10 MG VIAL IVP SCH ×4 (09:10→20:04)
[2022-01-02] MEDS: PLAQUENIL PO SCH ×2 (09:10→20:01)
[2022-01-02] MEDS: TAB-A-VITE PO SCH (09:10)
[2022-01-02] MEDS: ZOSYN VIAL 3.375 GRAMS 3.375 G in NS 100 ML IV 100 ML IV SCH ×3 (09:10→21:20)
[2022-01-02] MEDS: PEPCID 20 MG VIAL IVP SCH ×2 (09:10→20:04)
[2022-01-02] MEDS: DIFLUCAN 200 MG IV PREMIX* 200 MG/100 ML BAG IV SCH (09:11)
[2022-01-02] MEDS: CIPRO IV 400 MG PREMIX* 400 MG/200 ML IV.SOLN. IV SCH ×2 (09:11→20:00)
--- NOTE | 2022-01-02 09:26 | DR.PROGNOT ---
Hospital Progress Notes - Progress Note for Day of: Progress Note Date: 01/02/22 - Chief Complaint Chief Complaint: DOING MUCH BETTER TODAY . MORE CHEERFUL . BETTER APPETITE AND LESS ABDOMINAL PAIN .. AFEBRILE .. - Past Medical Family Social History Past Med/Fam/Surg Hx: No changes since H&P Allergies: Allergies amitriptyline [From Elavil] Adverse Reaction (Verified 12/09/20 16:02) barium sulfate Adverse Reaction (Verified 12/09/20 16:02) pantoprazole [From Protonix] Adverse Reaction (Verified 12/09/20 16:02) atomic fireball Adverse Reaction (Uncoded 12/09/20 16:02) - Review Of Systems ROS: No change since H&P - Vital Signs Vital Signs: Temperature 98.5 F Pulse Rate [Bilateral Radial] 75 Pulse Rate 74 Respiratory Rate 16 Blood Pressure [Left Arm] 128/83 Blood Pressure [Right Arm] 104/56 Blood Pressure [Standing] 133/73 Blood Pressure [Sitting] 116/63 Blood Pressure [Lying] 120/66 Blood Pressure 115/73 O2 Sat by Pulse Oximetry 100 - Physical Exam Oriented: Normal, Time, Person, Place Eyes: Normal, Other (legally blind) Ear: Normal Nose: Normal Throat: Normal Respiratory: Normal Cardiovascular: Normal GI:Auscultation: Decreased (soft abdomen with moderate RLQ tenderness . no rebound ..BS hypoactive ..) GI:Palpation: Normal GI: Tenderness: RLQ (soft, flat abdomen with moderate o severe RLQ tenderness .. B+), Guarding, Moderate Skin: Normal Musculoskeletal: Normal Psychiatric: Normal Mood Description: Calm Affect: Anxious Speech Pattern: Clear, Appropriate - Laboratory and Diagnostics Result Diagrams: 01/02/22 04:38 01/02/22 04:38 Labs: 01/02/22 01:36 Sputum - Expectorated Sputum - Final 12/28/21 08:50 Urine,Catheterized Urine Culture - Final Laboratory WBC 4.2 X10^3/uL (3.6-10.0) 01/02/22 04:38 RBC 3.24 X10^6/uL (3.5-5.4) L 01/02/22 04:38 Hgb 9.1 g/dL (12.0-16.0) L 01/02/22 04:38 Hct 25.7 % (36.0-47.0) L 01/02/22 04:38 MCV 79.4 fL (80.0-100.0) L 01/02/22 04:38 MCH 28.1 pg (27.0-34.0) 01/02/22 04:38 MCHC 35.4 g/dL (33.0-35.0) H 01/02/22 04:38 RDW 13.0 % (11.6-16.5) 01/02/22 04:38 Plt Count 210 X10^3/uL (150.0-450.0) 01/02/22 04:38 MPV 7.7 fL (7.4-11.0) 01/02/22 04:38 Neut % (Auto) 49.8 % (42.0-75.0) 01/02/22 04:38 Lymph % (Auto) 34.8 % (21.0-51.0) 01/02/22 04:38 [place] % (Auto) 10.5 % (0.0-13.0) 01/02/22 04:38 Eos % (Auto) 4.4 % (0.9-2.9) H 01/02/22 04:38 Baso % (Auto) 0.5 % (0.2-1.0) 01/02/22 04:38 Neut # (Auto) 2.1 x10^3/uL (2.2-4.8) L 01/02/22 04:38 Lymph # (Auto) 1.5 X10^3/uL (1.3-2.9) 01/02/22 04:38 [place] # (Auto) 0.4 x10^3/uL (0.3-0.8) 01/02/22 04:38 Eos # (Auto) 0.2 x10^3/uL (0.0-0.2) 01/02/22 04:38 Baso # (Auto) 0.0 X10^3/uL (0.0-0.1) 01/02/22 04:38 Absolute Nucleated RBC 0.0 /100WBC 01/02/22 04:38 ESR 2 MM/HOUR (0-20) 12/29/21 04:30 Sodium 142 mmol/L (136-145) 01/02/22 04:38 Corrected Sodium TNP 01/02/22 04:38 Potassium 3.0 mmol/L (3.5-5.1) L 01/02/22 04:38 Chloride 108 mmol/L (98-107) H 01/02/22 04:38 Carbon Dioxide 27.4 mmol/L (21-32) 01/02/22 04:38 BUN 1 mg/dL (7-18) L 01/02/22 04:38 Creatinine 0.45 mg/dL (0.55-1.02) L 01/02/22 04:38 Est GFR (MDRD) Af Amer > 60 (>60) 01/02/22 04:38 Est GFR (MDRD) Non-Af > 60 (>60) 01/02/22 04:38 Glucose 108 mg/dL (65-99) H 01/02/22 04:38 Calcium 7.6 mg/dL (8.5-10.1) L 01/02/22 04:38 Corrected Calcium 8.9 mg/dL (8.5-10.1) 01/02/22 04:38 Magnesium 1.5 mg/dL (1.7-2.9) L 01/02/22 04:38 Total Bilirubin 0.20 mg/dL (0.2-1.0) 01/02/22 04:38 AST 12 Units/L (15-37) L 01/02/22 04:38 ALT 9 Units/L (12-78) L 01/02/22 04:38 Alkaline Phosphatase 38 Units/L (46-116) L 01/02/22 04:38 C-Reactive Protein 44.70 mg/L (0-3.0) H 12/30/21 15:15 Total Protein 5.1 g/dL (6.4-8.2) L 01/02/22 04:38 Albumin 2.4 g/dL (3.4-5.0) L 01/02/22 04:38 Globulin 2.7 g/dL (2.5-4.5) 01/02/22 04:38 Albumin/Globulin Ratio 0.9 Ratio (1.1-2.1) L 01/02/22 04:38 HCG, Qual Negative <10 mIU/mL 12/26/21 15:40 Specimen Type Catherized urine 12/28/21 08:50 Urine Color Yellow (YELLOW) 12/28/21 08:50 Urine Appearance Slightly hazy (CLEAR) 12/28/21 08:50 Urine pH 5.0 (5.0 - 8.0) 12/28/21 08:50 Ur Specific [place] 1.025 (1.000-1.030) 12/28/21 08:50 Urine Protein 1+ (NEGATIVE) 12/28/21 08:50 Urine Glucose (UA) Negative (NEGATIVE) 12/28/21 08:50 Urine Ketones 1+ (NEGATIVE) 12/28/21 08:50 Urine Blood Negative (NEGATIVE) 12/28/21 08:50 Urine Nitrite Negative (NEGATIVE) 12/28/21 08:50 Urine Bilirubin Negative (NEGATIVE) 12/28/21 08:50 Urine Urobilinogen Normal (NORMAL) 12/28/21 08:50 Ur Leukocyte Esterase Negative (NEGATIVE) 12/28/21 08:50 Urine RBC 0-2 /HPF (0-3) 12/28/21 08:50 Urine WBC 0-2 /HPF (0-5) 12/28/21 08:50 Ur Squamous Epith Cells Rare /HPF (NEGATIVE) 12/28/21 08:50 Urine Bacteria Trace /HPF (NEGATIVE) 12/28/21 08:50 Urine Mucus Rare /HPF (NEGATIVE) 12/28/21 08:50 Ur Culture Indicated? Yes/culture set up 12/28/21 08:50 Stool H. pylori Ag Negative (NEGATIVE) 12/31/21 20:33 SARS-CoV-2 (PCR) Negative (NEGATIVE) 01/01/22 13:00 Influenza Type A (PCR) Negative (NEGATIVE) 01/01/22 13:00 Influenza Type B (PCR) Negative (NEGATIVE) 01/01/22 13:00 RSV (PCR) Negative (NEGATIVE) 01/01/22 13:00 Tissue Pathology To follow 01/01/22 11:36 - Assessment and Plan 1: S/P LAPAROSCOPY , APPENDECTOMY . DRAINAGE OF CYST RT ADNEXAL . no IBD .. to advance diet and will follow in the office in 10 days ..
[2022-01-02] MEDS: NORCO 7.5/325 MG TAB PO PRN ×2 (09:30→22:50)
[2022-01-02] MEDS: K-DUR TAB 20 MEQ PO PRN (09:30)
[2022-01-02] MEDS: MAGNESIUM SULFATE 1 GRAM/100 mL PREMIX 1 G/100 ML BAG IV PRN (09:30)
[2022-01-02] MEDS: NYSTATIN SUSP MT SCH ×4 (09:55→20:02)
[2022-01-02] MEDS: ZOFRAN INJ 4 MG VIAL IVP PRN ×2 (10:59→20:41)
[2022-01-02] MEDS ORDERED: ZOLOFT ONE (19:05)
[2022-01-02] MEDS: PATIENT'S HOME MEDICATION PO SCH (20:00)
[2022-01-02] MEDS: ZOLOFT PO SCH (20:00)
[2022-01-02] MEDS: ZANAFLEX PO SCH (20:02)
[2022-01-02] MEDS: GOLYTELY or GAVILYTE or Equivalent PO SCH (21:20)
[2022-01-02] MEDS: PHENERGAN INJ 25 MG IM PRN (22:57)
[2022-01-03] MEDS: ZOFRAN INJ 4 MG VIAL IVP PRN ×2 (03:22→14:19)
[2022-01-03] MEDS: DILAUDID INJ IVP PRN ×5 (03:22→14:20)
[2022-01-03 04:59] LABS: BASOPHILS % (AUTO) 0.3 % (0.2-1.0); EOSINOPHILS # (AUTO) 0.2 x10^3/uL (0.0-0.2); EOSINOPHILS % (AUTO) 4.3 % (0.9-2.9); HEMOGLOBIN 9.4 g/dL (12.0-16.0); LYMPHOCYTES # (AUTO) 1.8 X10^3/uL (1.3-2.9); LYMPHOCYTES % (AUTO) 41.1 % (21.0-51.0); MEAN CORPUSCULAR HEMOGLOBIN 28.7 pg (27.0-34.0); MEAN CORPUSCULAR HGB CONC 36.3 g/dL (33.0-35.0); MEAN CORPUSCULAR VOLUME 78.9 fL (80.0-100.0); MEAN PLATELET VOLUME 7.7 fL (7.4-11.0); MONOCYTES # (AUTO) 0.4 x10^3/uL (0.3-0.8); MONOCYTES % (AUTO) 9.7 % (0.0-13.0); NEUTROPHILS % (AUTO) 44.6 % (42.0-75.0); RED BLOOD COUNT 3.29 X10^6/uL (3.5-5.4); RED CELL DISTRIBUTION WIDTH 13.1 % (11.6-16.5); WHITE BLOOD COUNT 4.4 X10^3/uL (3.6-10.0)
[2022-01-03 05:11] LABS: ALANINE AMINOTRANSFERASE 16 Units/L (12-78); ALBUMIN 2.6 g/dL (3.4-5.0); ALKALINE PHOSPHATASE 38 Units/L (46-116); ASPARTATE AMINO TRANSFERASE 11 Units/L (15-37); BLOOD UREA NITROGEN 1 mg/dL (7-18); CALCIUM 7.7 mg/dL (8.5-10.1); CARBON DIOXIDE 26.3 mmol/L (21-32); CHLORIDE 108 mmol/L (98-107); COR CA(FOR HYPOALB) 8.8 mg/dL (8.5-10.1); CREATININE 0.46 mg/dL (0.55-1.02); MAGNESIUM 1.4 mg/dL (1.7-2.9); SODIUM 141 mmol/L (136-145); TOTAL PROTEIN 5.4 g/dL (6.4-8.2); eGFR NON BLACK RACES > 60 (>60)
[2022-01-03] MEDS: NS 1,000 ML IV 1,000 ML IV SCH ×2 (05:18→10:08)
[2022-01-03] MEDS: ZOSYN VIAL 3.375 GRAMS 3.375 G in NS 100 ML IV 100 ML IV SCH ×2 (05:19→16:24)
[2022-01-03] MEDS: NEURONTIN TAB 600 MG PO SCH ×2 (05:19→13:25)
[2022-01-03] MEDS: COMPAZINE INJ IVP SCH ×2 (05:19→13:24)
[2022-01-03] MEDS: CARAFATE PO SCH ×2 (05:49→11:15)
[2022-01-03] MEDS: MAGNESIUM SULFATE 1 GRAM/100 mL PREMIX 1 G/100 ML BAG IV PRN ×3 (06:34→14:18)
--- NOTE | 2022-01-03 06:38 | RAD ---
HISTORYFollow-up pneumoniaSTUDYChest AP [id number]/2022FINDINGSThe heart is enlarged. No congestive heart failure is noted. Right lung and left upper lung zayas are clear. There has been some improvement in the left lower lobe pneumonia being followed however significant infiltrate remains. No significant pleural effusions are identified. Bony thorax is unremarkable.IMPRESSIONSome improvement left lower lobe consolidating pneumonia, however, significant infiltrate remainsMild cardiomegaly without congestive heart failureElectronically signed by: AMINA LOCKHART (Jan 03, 2022 06:36:37)
[2022-01-03] MEDS: CIPRO IV 400 MG PREMIX* 400 MG/200 ML IV.SOLN. IV SCH (08:35)
[2022-01-03] MEDS: PriLOSEC PO SCH (08:35)
[2022-01-03] MEDS: NYSTATIN SUSP MT SCH ×2 (08:35→13:23)
[2022-01-03] MEDS: REGLAN INJ 10 MG VIAL IVP SCH ×2 (08:35→13:24)
[2022-01-03] MEDS: TAB-A-VITE PO SCH (08:35)
[2022-01-03] MEDS: PLAQUENIL PO SCH (08:35)
[2022-01-03] MEDS: PHENERGAN INJ 25 MG IM PRN (08:45)
[2022-01-03] MEDS ORDERED: LASIX IVP SCH (09:00)
[2022-01-03] MEDS ORDERED: PEPCID 20 MG VIAL 20 MG in NS 50 ML IV 50 ML IV SCH (09:00)
[2022-01-03] MEDS: NORCO 7.5/325 MG TAB PO PRN ×2 (09:05→13:28)
[2022-01-03] MEDS: K-DUR TAB 20 MEQ PO PRN (10:25)
[2022-01-03] MEDS: DIFLUCAN 200 MG IV PREMIX* 200 MG/100 ML BAG IV SCH (11:45)
[2022-01-03] MEDS: XOPENEX 1.25 MG/3 ML NEBULE NEB SCH (12:51)
[2022-01-03 16:44] VITALS: BP 98/54
--- NOTE | 2022-01-04 16:58 | OR.IMMED ---
Immediate Post-Op Note - Immediate Post-Op Note Pre-Op Diagnosis: 01/01/2022. RT side abdominal pain . nausea , vomiting . h/o IBD Post-Op Diagnosis: large cyst RT adnexa . no Crohn's disease . thick and congested appendix .. Procedure: diagnostic laparoscopy . drainage of large cyst Rt adnexa . appendectomy . Surgeon/Paving And Surfacing Labourer: Dr Acuña Specimens Removed: Appendix . Cyst Rt adnexa . Drains: NONE Complications: none . Condition: Stable (liquid diet)
== END 2022-01-03 16:50 | disposition home or self-care (01) | DRG 981 ==
LOC: ICU
PROVIDERS: ADMIT Family Medicine; ATTEND Family Medicine
PROC: APPYLAP (ICD-10-PCS; 2022-01-01 09:15)
DX: R33.9 Retention of urine, unspecified; I95.89 Other hypotension; K31.84 Gastroparesis; E87.6 Hypokalemia; K21.00 Gastro-esophageal reflux disease with esophagitis, without bleeding; F41.8 Other specified anxiety disorders; I49.8 Other specified cardiac arrhythmias; Z87.19 Personal history of other diseases of the digestive system; N83.291 Other ovarian cyst, right side; J18.8 Other pneumonia, unspecified organism; R10.31 Right lower quadrant pain; B37.1 Pulmonary candidiasis; R11.2 Nausea with vomiting, unspecified; K29.00 Acute gastritis without bleeding; R10.84 Generalized abdominal pain; Z20.822 Contact with and (suspected) exposure to COVID-19; K58.8 Other irritable bowel syndrome; E83.42 Hypomagnesemia